=== PATIENT | male | born 1990 | race Caucasian/White ===

== ENCOUNTER 2017-08-23 10:53 | Outpatient (CLI) | payer BC ==
[~2017-08-23] VITALS: Ht 177.8 cm; Wt 70.3 kg
[~2017-08-23 10:53] MED LIST: OXYM30MI9 NS
[2017-08-24] MEDS ORDERED: AMOX-355 PO (11:22)
[2017-08-24] MEDS ORDERED: PRD20T PO (11:22)
[2017-08-24] MEDS ORDERED: HYDR-3812 PO (11:22)
== END 2017-08-23 10:59 ==
LOC: PREOP 10:53
PROVIDERS: ATTEND Otolaryngology Otolaryngology/Facial Plastic Surgery
DX: Z01.818 Encounter for other preprocedural examination (principal); J32.9 Chronic sinusitis, unspecified; J34.2 Deviated nasal septum; J34.3 Hypertrophy of nasal turbinates

== ENCOUNTER 2017-08-24 06:05 | Day surgery (SDC) | payer BC ==
[~2017-08-24] VITALS: Ht 177.8 cm; Wt 70.3 kg
--- OUTSIDE RECORDS SUMMARY | 2017-08-24 06:09 | XMS REPORT | Clinical Summary ---
Author Author Admin, [facility] Organization [employer] Address Unknown Phone Unavailable Allergies, Adverse Reactions, Alerts Allergy Name Reaction Description Start Date Severity Status Provider No Known Allergies Janina Justice A Conditions or Problems Problem Name Problem Code Onset Date Status Entry Date Provider Comment Standard Description Annotate HEALTH EXAMINATION OF DEFINED SUBPOPULATION V70.5 Active Amanda Yates Health examination of defined subpopulations HEALTH SCREENING V70.0 Active Sloan LOPEZ Routine general medical examination at a health care facility Bronchitis, acute with mild bronchospasm 466.0 Inactive Abelardo Butler DO Acute bronchitis Bronchitis-Acute Resolved Elder Dominguez MD Acute bronchitis Tinea corporis 110.5 Active Hang Farias MD Dermatophytosis of the body Chest wall pain, acute 786.52 Active Elder Dominguez MD Painful respiration Bronchitis, acute with mild bronchospasm ICD-466.0 Inactive Abelardo Butler DO Bronchitis-Acute Inactive Elder Dominguez MD 2015 Medication List Medication Instructions Start Date Stop Date Generic Name NDC Status Provider Patient Instruction METHOCARBAMOL 750 MG TABS 1 po q8hr PRN Muscle Spasm METHOCARBAMOL 19227165909 Active Elder Dominguez MD Active FLONASE 50 MCG/ACT SUSP 1 spray each nostril q hs FLUTICASONE PROPIONATE Active Elder Dominguez MD Active MELOXICAM 15 MG TABS 1 po q day for pain with food MELOXICAM 22695064529 Active Elder Dominguez MD Active ZOFRAN 4 MG TABS 1 po q6hr PRN Nausea ONDANSETRON HCL 08204401705 Active Elder Dominguez MD Active OXYCODONE HCL 5 MG ORAL TABS 1 tablet every 4-6 hours p.r.n. pain sparingly OXYCODONE HCL 48532577861 Active Elder Dominguez MD Active CHERATUSSIN AC 100-10 MG/5ML SYRP 1 tsp by mouth every 4 hours as needed for cough GUAIFENESIN-CODEINE 50847681414 No Longer Active Elder Dominguez MD Active PREDNISONE 20 MG TAB take 3 tabs daily for 3 days, 2 tabs daily for 3 days, 1 tab daily for 3 days, 1/2 tab daily for 3 days PREDNISONE 35031135870 No Longer Active Hang Farias MD Active TERBINAFINE HCL 250 MG TABS 1 qDay for rash TERBINAFINE HCL 37114017600 No Longer Active Hang Farias MD Active ALBUTEROL SULFATE 0.083 % NEBU SOLN one vial per nebulizer every 4-6 hours as needed ALBUTEROL SULFATE 22617484932 No Longer Active Hang Farias MD Active PREDNISONE 20 MG TAB 2 tabs today, then 1 tab by mouth days 2-5 PREDNISONE 50622582517 No Longer Active Hang Farias MD Active AZITHROMYCIN 250 MG TABS 2 po qd x 1 day, then 1 po qd x 4 days AZITHROMYCIN 44707104397 No Longer Active Abelardo Butler DO Active PREDNISONE 20 MG TAB 2 tabs today, then 1 tab by mouth days 2-5 PREDNISONE 20 MG TAB 274882 PREDNISONE Inactive ALBUTEROL SULFATE 0.083 % NEBU SOLN one vial per nebulizer every 4-6 hours as needed ALBUTEROL SULFATE 0.083 % NEBU SOLN 192983 ALBUTEROL SULFATE Inactive CHERATUSSIN AC 100-10 MG/5ML SYRP 1 tsp by mouth every 4 hours as needed for cough CHERATUSSIN AC 100-10 MG/5ML SYRP 838528 GUAIFENESIN-CODEINE Inactive AZITHROMYCIN 250 MG TABS 2 po qd x 1 day, then 1 po qd x 4 days AZITHROMYCIN 250 MG TABS 2511973 AZITHROMYCIN Inactive TERBINAFINE HCL 250 MG TABS 1 qDay for rash TERBINAFINE HCL 250 MG TABS 721811 TERBINAFINE HCL Inactive PREDNISONE 20 MG TAB take 3 tabs daily for 3 days, 2 tabs daily for 3 days, 1 tab daily for 3 days, 1/2 tab daily for 3 days PREDNISONE 20 MG TAB 690618 PREDNISONE Inactive Vital Signs Date Name Value Unit Range Description blood pressure, diastolic - 8462-4 76 mm[Hg] BP rivas blood pressure, systolic - 8480-6 130 mm[Hg] BP sys pulse rate E&M - 8867-4 73 /min Heart rate temperature E&M 97.8 [degF] Body temperature weight E&M - 3141-9 153.5 [lb_av] Weight Measured blood pressure, diastolic - 8462-4 79 mm[Hg] BP rivas blood pressure, systolic - 8480-6 124 mm[Hg] BP sys pulse rate E&M - 8867-4 69 /min Heart rate temperature E&M 98.7 [degF] Body temperature weight E&M - 3141-9 153 [lb_av] Weight Measured blood pressure, diastolic - 8462-4 73 mm[Hg] BP rivas blood pressure, systolic - 8480-6 145 mm[Hg] BP sys pulse rate E&M - 8867-4 75 /min Heart rate temperature E&M 97.8 [degF] Body temperature weight E&M - 3141-9 156.5 [lb_av] Weight Measured Encounters Code Encounter Date Provider Facility CPT-90464 Level 3 Est. Patient 10:29:19 CDT Elder Dominguez MD [facility] CPT-83917 Level 3 Est. 

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
--- OUTSIDE RECORDS SUMMARY | 2017-08-24 06:09 | XMS REPORT | Clinical Summary ---
Author Author Admin, [facility] Organization [facility] Address Unknown Phone Unavailable Allergies, Adverse Reactions, Alerts Allergy Name Reaction Description Start Date Severity Status Provider No Known Allergies Janina Justice RMA Conditions or Problems Problem Name Problem Code Onset Date Status Entry Date Provider Comment Standard Description Annotate HEALTH EXAMINATION OF DEFINED SUBPOPULATION V70.5 Active Amanda Yates Health examination of defined subpopulations HEALTH SCREENING V70.0 Active Sloan LOPEZ Routine general medical examination at a health care facility Bronchitis, acute with mild bronchospasm 466.0 Inactive Abelardo Btuler DO Acute bronchitis Bronchitis-Acute Resolved Elder Dominguez [...] 1 po q8hr PRN Muscle Spasm METHOCARBAMOL 25303663655 Active Elder Dominguez MD Active FLONASE 50 MCG/ACT SUSP 1 spray each nostril q hs FLUTICASONE PROPIONATE Active Elder Dominguez MD Active MELOXICAM 15 MG TABS 1 po q day for pain with food MELOXICAM 92665701090 Active Elder Dominguez MD Active ZOFRAN 4 MG TABS 1 po q6hr PRN Nausea ONDANSETRON HCL 05658612827 Active Elder Dominguez MD Active OXYCODONE HCL 5 MG ORAL TABS 1 tablet every 4-6 hours p.r.n. pain sparingly OXYCODONE HCL 95234276899 Active Elder Dominguez MD Active CHERATUSSIN AC 100-10 MG/5ML SYRP 1 tsp by mouth every 4 hours as needed for cough GUAIFENESIN-CODEINE 21366422882 No Longer Active Elder Dominguez MD Active PREDNISONE 20 MG TAB take 3 tabs daily for 3 days, 2 tabs daily for 3 days, 1 tab daily for 3 days, 1/2 tab daily for 3 days PREDNISONE 70543461221 No Longer Active Hang Farias MD Active TERBINAFINE HCL 250 MG TABS 1 qDay for rash TERBINAFINE HCL 36366615387 No Longer Active Hang Farias MD Active ALBUTEROL SULFATE 0.083 % NEBU SOLN one vial per nebulizer every 4-6 hours as needed ALBUTEROL SULFATE 52992583251 No Longer Active Hang Farias MD Active PREDNISONE 20 MG TAB 2 tabs today, then 1 tab by mouth days 2-5 PREDNISONE 97229631266 No Longer Active Hang Farias MD Active AZITHROMYCIN 250 MG TABS 2 po qd x 1 day, then 1 po qd x 4 days AZITHROMYCIN 58314520497 No Longer Active Abelardo Butler DO Active PREDNISONE 20 MG TAB 2 tabs today, then 1 tab by mouth days 2-5 PREDNISONE 20 MG TAB 581724 PREDNISONE Inactive ALBUTEROL SULFATE 0.083 % NEBU SOLN one vial per nebulizer every 4-6 hours as needed ALBUTEROL SULFATE 0.083 % NEBU SOLN 249196 ALBUTEROL SULFATE Inactive CHERATUSSIN AC 100-10 MG/5ML SYRP 1 tsp by mouth every 4 hours as needed for cough CHERATUSSIN AC 100-10 MG/5ML SYRP 652855 GUAIFENESIN-CODEINE Inactive AZITHROMYCIN 250 MG TABS 2 po qd x 1 day, then 1 po qd x 4 days AZITHROMYCIN 250 MG TABS 3913136 AZITHROMYCIN Inactive TERBINAFINE HCL 250 MG TABS 1 qDay for rash TERBINAFINE HCL 250 MG TABS 618994 TERBINAFINE HCL Inactive PREDNISONE 20 MG TAB take 3 tabs daily for 3 days, 2 tabs daily for 3 days, 1 tab daily for 3 days, 1/2 tab daily for 3 days PREDNISONE 20 MG TAB 711575 PREDNISONE Inactive Vital Signs Date Name Value [...] Measured Encounters Code Encounter Date Provider Facility CPT-33705 Level 3 Est. Patient 10:29:19 CDT Elder Dominguez MD [facility] CPT-29958 Level 3 Est. 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 Patient 17:13:20 SHIPPING LEAD PERSON Abelardo Butler DO [facility] Procedures Code Procedure Name Date Entry Date Standard Description CPT-14664 Sternum 2V - XRAY USE ONLY 10:41:33 CDT CPT-19003 [place] only w graphic rec 11:10:43 CDT CPT-99855 Audiometry - Co Only 11:10:43 CDT CPT-34643 Spec Collection and Handling Fee 11:10:43 CDT
--- OUTSIDE RECORDS SUMMARY | 2017-08-24 06:09 | XMS REPORT | Clinical Summary ---
Author Author Admin, [facility] Organization [facility] Address Unknown Phone Unavailable Allergies, Adverse Reactions, Alerts Allergy Name Reaction Description Start Date Severity Status Provider No Known Allergies Sandra Connors Conditions or Problems Problem Name Problem Code [...] MD Pain in joint involving shoulder region Bronchitis, acute with mild bronchospasm ICD-466.0 Inactive Abelardo Butler DO Bronchitis-Acute Inactive Elder Dominguez MD 2015 Medication List Medication Instructions Start Date Stop Date Generic Name NDC Status Provider Patient Instruction METHOCARBAMOL 750 MG TABS 1 po q8hr PRN Muscle Spasm METHOCARBAMOL 22225987378 No Longer Active Hang Farias MD Active ZOFRAN 4 MG TABS 1 po q6hr PRN Nausea ONDANSETRON HCL 21554865058 No Longer Active Hang Farias MD Active FLONASE 50 MCG/ACT SUSP 1 spray each nostril q hs FLUTICASONE PROPIONATE Active Elder Dominguez MD Active MELOXICAM 15 MG TABS 1 po q day for pain with food MELOXICAM 45650830628 Active Elder Dominguez MD Active OXYCODONE HCL 5 MG ORAL TABS 1 tablet every 4-6 hours p.r.n. pain sparingly OXYCODONE HCL 09059094085 Active Elder Dominguez MD Active CHERATUSSIN AC 100-10 MG/5ML SYRP 1 tsp by mouth every 4 hours as needed for cough GUAIFENESIN-CODEINE 27664694870 No Longer Active Elder Dominguez MD Active PREDNISONE 20 MG TAB take 3 tabs daily for 3 days, 2 tabs daily for 3 days, 1 tab daily for 3 days, 1/2 tab daily for 3 days PREDNISONE 47137308658 No Longer Active Hang Farias MD Active TERBINAFINE HCL 250 MG TABS 1 qDay for rash TERBINAFINE HCL 95224361409 No Longer Active Hang Farias MD Active ALBUTEROL SULFATE 0.083 % [facility] one vial per nebulizer every 4-6 hours as needed ALBUTEROL SULFATE 92243624485 No Longer Active Hang Farias MD Active PREDNISONE 20 MG TAB 2 tabs today, then 1 tab by mouth days 2-5 PREDNISONE 37155138503 No Longer Active Hang Farias MD Active AZITHROMYCIN 250 MG TABS 2 po qd x 1 day, then 1 po qd x 4 days AZITHROMYCIN 64187445942 No Longer Active Abelardo Butler DO Active PREDNISONE 20 MG TAB 2 tabs today, then 1 tab by mouth days 2-5 PREDNISONE 20 MG TAB 448324 PREDNISONE Inactive ALBUTEROL SULFATE 0.083 % NEBU SOLN one vial per nebulizer every 4-6 hours as needed ALBUTEROL SULFATE 0.083 % NEBU SOLN 163435 ALBUTEROL SULFATE Inactive CHERATUSSIN AC 100-10 MG/5ML SYRP 1 tsp by mouth every 4 hours as needed for cough CHERATUSSIN AC 100-10 MG/5ML SYRP 798502 GUAIFENESIN-CODEINE Inactive ZOFRAN 4 MG TABS 1 po q6hr PRN Nausea ZOFRAN 4 MG TABS 008624 ONDANSETRON HCL Inactive METHOCARBAMOL 750 MG TABS 1 po q8hr PRN Muscle Spasm METHOCARBAMOL 750 MG TABS 365340 METHOCARBAMOL Inactive AZITHROMYCIN 250 MG TABS 2 po qd x 1 day, then 1 po qd x 4 days AZITHROMYCIN 250 MG TABS 4375756 AZITHROMYCIN Inactive TERBINAFINE HCL 250 MG TABS 1 qDay for rash TERBINAFINE HCL 250 MG TABS 986301 TERBINAFINE HCL Inactive PREDNISONE 20 MG TAB take 3 tabs daily for 3 days, 2 tabs daily for 3 days, 1 tab daily for 3 days, 1/2 tab daily for 3 days PREDNISONE 20 MG TAB 445787 PREDNISONE Inactive Vital Signs Date Name Value Unit Range Description blood pressure, diastolic - 8462-4 77 mm[Hg] [...] Measured Encounters Code Encounter Date Provider Facility CPT-93169 Level 3 Est. Patient 12:32:48 CDT Hang Farias MD [facility] CPT-13927 Level 3 Est. Patient 10:29:19 CDT Elder Dominguez MD [facility] CPT-79600 Level 3 Est. 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 Patient 17:13:20 GLASS ENGRAVER Abelardo Butler DO [facility] Procedures Code Procedure Name Date Entry Date Standard Description CPT-48572 Sternum 2V - XRAY USE ONLY 10:41:33 CDT CPT-20527 [place] only w graphic rec 11:10:43 CDT CPT-01307 Audiometry - Co Only 11:10:43 CDT CPT-94220 Spec Collection and Handling Fee 11:10:43 CDT
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
--- OUTSIDE RECORDS SUMMARY | 2017-08-24 06:10 | XMS REPORT | Clinical Summary ---
Author Author Admin, [facility] Organization [facility] Address Unknown Phone Unavailable Allergies, Adverse Reactions, [...] q pm, if needed for cough PROMETHAZINE-CODEINE 05658204312 Active Shadyllina Mansoorl OWNER/OPERATOR Active PREDNISONE 20 MG TAB 2 tabs daily for 3 days, 1 tab daily for 3 days, 1/2 tab daily for 2 days PREDNISONE 93347441343 Active Jillina Framerlinl OWNER/OPERATOR Active AZITHROMYCIN 250 MG TABS 2 po qd x 1 day, then 1 po qd x 4 days AZITHROMYCIN 22172957321 Active Jillina Frazell OWNER/OPERATOR Active VENTOLIN HFA 108 (90 BASE) MCG/ACT AERS 1-2 puffs every 4 hours if needed for cough/congestion ALBUTEROL SULFATE 24744506959 Active Shadyllina Mansoorl OWNER/OPERATOR Active OXYCODONE HCL 5 MG ORAL TABS 1 tablet every 4-6 hours p.r.n. pain sparingly OXYCODONE HCL 92593518402 No Longer Active Shadyllina Mansoorl OWNER/OPERATOR Active MELOXICAM 15 MG TABS 1 po q day for pain with food MELOXICAM 17755034182 No Longer Active Shadyllina Mansoorl OWNER/OPERATOR Active METHOCARBAMOL 750 MG TABS 1 po q8hr PRN Muscle Spasm METHOCARBAMOL 46388064387 No Longer Active Hang Farias MD Active ZOFRAN 4 MG TABS 1 po q6hr PRN Nausea ONDANSETRON HCL 17808628653 No Longer Active Hang Farias MD Active FLONASE 50 MCG/ACT SUSP 1 spray each nostril q hs FLUTICASONE PROPIONATE Active Elder Dominguez MD Active CHERATUSSIN AC 100-10 MG/5ML SYRP 1 tsp by mouth every 4 hours as needed for cough GUAIFENESIN-CODEINE 99624867633 No Longer Active Elder Dominguez MD Active PREDNISONE 20 MG TAB take 3 tabs daily for 3 days, 2 tabs daily for 3 days, 1 tab daily for 3 days, 1/2 tab daily for 3 days PREDNISONE 44727002637 No Longer Active Hang Farias MD Active TERBINAFINE HCL 250 MG TABS 1 qDay for rash TERBINAFINE HCL 93824664552 No Longer Active Hang Farias MD Active ALBUTEROL SULFATE 0.083 % NEBU SOLN one vial per nebulizer every 4-6 hours as needed ALBUTEROL SULFATE 82672111949 No Longer Active Hang Farias MD Active PREDNISONE 20 MG TAB 2 tabs today, then 1 tab by mouth days 2-5 PREDNISONE 56418645989 No Longer Active Hang Farias MD Active AZITHROMYCIN 250 MG TABS 2 po qd x 1 day, then 1 po qd x 4 days AZITHROMYCIN 12428766195 No Longer Active Abelardo Butler DO Active PREDNISONE 20 MG TAB 2 tabs today, then 1 tab by mouth days 2-5 PREDNISONE 20 MG TAB 285513 PREDNISONE Inactive ALBUTEROL SULFATE 0.083 % NEBU SOLN one vial per nebulizer every 4-6 hours as needed ALBUTEROL SULFATE 0.083 % NEBU SOLN 123081 ALBUTEROL SULFATE Inactive CHERATUSSIN AC 100-10 MG/5ML SYRP 1 tsp by mouth every 4 hours as needed for cough CHERATUSSIN AC 100-10 MG/5ML SYRP 530121 GUAIFENESIN-CODEINE Inactive ZOFRAN 4 MG TABS 1 po q6hr PRN Nausea ZOFRAN 4 MG TABS 043136 ONDANSETRON HCL Inactive METHOCARBAMOL 750 MG TABS 1 po q8hr PRN Muscle Spasm METHOCARBAMOL 750 MG TABS 033212 METHOCARBAMOL Inactive MELOXICAM 15 MG TABS 1 po q day for pain with food MELOXICAM 15 MG TABS 695823 MELOXICAM Inactive OXYCODONE HCL 5 MG ORAL TABS 1 tablet every 4-6 hours p.r.n. pain sparingly OXYCODONE HCL 5 MG ORAL TABS 3340602 OXYCODONE HCL Inactive AZITHROMYCIN 250 MG TABS 2 po qd x 1 day, then 1 po qd x 4 days AZITHROMYCIN 250 MG TABS 4360516 AZITHROMYCIN Inactive TERBINAFINE HCL 250 MG TABS 1 qDay for rash TERBINAFINE HCL 250 MG TABS 724553 TERBINAFINE HCL Inactive PREDNISONE 20 MG TAB take 3 tabs daily for 3 days, 2 tabs daily for 3 days, 1 tab daily for 3 days, 1/2 tab daily for 3 days PREDNISONE 20 MG TAB 816319 PREDNISONE Inactive Vital Signs Date Name Value [...] Measured Encounters Code Encounter Date Provider Facility CPT-41487 Level 3 Est. [facility] 10:56:[facility] Level 3 Est. Patient 12:32:48 CDT Hang Farias MD [facility] CPT-46623 Level 3 Est. Patient 10:29:19 CDT Elder Dominguez MD [facility] CPT-37467 Level 3 Est. 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 Patient 17:13:20 PRODUCTION MECHANIC TIN C[employer] Abelardo Butler DO [facility] Procedures Code Procedure Name Date Entry Date Standard Description CPT-46915 Sternum 2V - XRAY USE ONLY 10:41:33 CDT CPT-19089 [place] only w graphic rec 11:10:43 CDT CPT-40770 Audiometry - Co Only 11:10:43 CDT CPT-93205 Spec Collection and Handling Fee 11:10:43 CDT
--- OUTSIDE RECORDS SUMMARY | 2017-08-24 06:10 | XMS REPORT | Clinical Summary ---
Author Author Admin, [facility] Organization [facility] Address Unknown Phone Unavailable Allergies, Adverse [...] 1 po q8hr PRN Muscle Spasm METHOCARBAMOL 85165673341 Active Elder Dominguez MD Active FLONASE 50 MCG/ACT SUSP 1 spray each nostril q hs FLUTICASONE PROPIONATE Active Elder Dominguez MD Active MELOXICAM 15 MG TABS 1 po q day for pain with food MELOXICAM 32541223967 Active Elder Dominguez MD Active ZOFRAN 4 MG TABS 1 po q6hr PRN Nausea ONDANSETRON HCL 99812939113 Active Elder Dominguez MD Active OXYCODONE HCL 5 MG ORAL TABS 1 tablet every 4-6 hours p.r.n. pain sparingly OXYCODONE HCL 68511075745 Active Elder Dominguez MD Active CHERATUSSIN AC 100-10 MG/5ML SYRP 1 tsp by mouth every 4 hours as needed for cough GUAIFENESIN-CODEINE 57090544464 No Longer Active Elder Dominguez MD Active PREDNISONE 20 MG TAB take 3 tabs daily for 3 days, 2 tabs daily for 3 days, 1 tab daily for 3 days, 1/2 tab daily for 3 days PREDNISONE 42642509871 No Longer Active Hang Farias MD Active TERBINAFINE HCL 250 MG TABS 1 qDay for rash TERBINAFINE HCL 92783675029 No Longer Active Hang Farias MD Active ALBUTEROL SULFATE 0.083 % NEBU SOLN one vial per nebulizer every 4-6 hours as needed ALBUTEROL SULFATE 57817411602 No Longer Active Hang Farias MD Active PREDNISONE 20 MG TAB 2 tabs today, then 1 tab by mouth days 2-5 PREDNISONE 81332590020 No Longer Active Hang Farias MD Active AZITHROMYCIN 250 MG TABS 2 po qd x 1 day, then 1 po qd x 4 days AZITHROMYCIN 40813786762 No Longer Active Abelardo Butler DO Active PREDNISONE 20 MG TAB 2 tabs today, then 1 tab by mouth days 2-5 PREDNISONE 20 MG TAB 006499 PREDNISONE Inactive ALBUTEROL SULFATE 0.083 % NEBU SOLN one vial per nebulizer every 4-6 hours as needed ALBUTEROL SULFATE 0.083 % NEBU SOLN 758961 ALBUTEROL SULFATE Inactive CHERATUSSIN AC 100-10 MG/5ML SYRP 1 tsp by mouth every 4 hours as needed for cough CHERATUSSIN AC 100-10 MG/5ML SYRP 197699 GUAIFENESIN-CODEINE Inactive AZITHROMYCIN 250 MG TABS 2 po qd x 1 day, then 1 po qd x 4 days AZITHROMYCIN 250 MG TABS 1113196 AZITHROMYCIN Inactive TERBINAFINE HCL 250 MG TABS 1 qDay for rash TERBINAFINE HCL 250 MG TABS 338081 TERBINAFINE HCL Inactive PREDNISONE 20 MG TAB take 3 tabs daily for 3 days, 2 tabs daily for 3 days, 1 tab daily for 3 days, 1/2 tab daily for 3 days PREDNISONE 20 MG TAB 895500 PREDNISONE Inactive Vital Signs Date Name Value [...] Measured Encounters Code Encounter Date Provider Facility CPT-86150 Level 3 Est. Patient 10:29:19 CDT Elder Dominguez MD [facility] CPT-12618 Level 3 Est. 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 Patient 17:13:20 TACKER ELASTIC BAND Abelardo Butler DO [facility] Procedures Code Procedure Name Date Entry Date Standard Description CPT-28922 Sternum 2V - XRAY USE ONLY 10:41:33 CDT CPT-84830 [place] only w graphic rec 11:10:43 CDT CPT-16385 Audiometry - Co Only 11:10:43 CDT CPT-77389 Spec Collection and Handling Fee 11:10:43 CDT
--- OUTSIDE RECORDS SUMMARY | 2017-08-24 06:10 | XMS REPORT | Clinical Summary ---
Author Author Admin, [facility] Organization [employer] Address Unknown Phone Unavailable Allergies, Adverse Reactions, [...] other bone Shoulder pain, left 719.41 Resolved Carter Grant MD Pain in joint involving shoulder [...] every 12 hours for 10 days AMOXICILLIN 03564011296 Active Carter Grant MD Active PREDNISONE 20 MG TABS Take 2 daily for 5 days and then 1 daily for 5 days PREDNISONE 24136629944 Active Carter Grant MD Active FLONASE 50 MCG/ACT SUSP 1 spray each nostril q hs FLUTICASONE PROPIONATE No Longer Active Carter Grant MD Active PROMETHAZINE-CODEINE 6.25-10 MG/5ML SYRP 1 tsp by mouth q pm, if needed for cough PROMETHAZINE-CODEINE 97320823058 No Longer Active Carter Grant MD Active PREDNISONE 20 MG TAB 2 tabs daily for 3 days, 1 tab daily for 3 days, 1/2 tab daily for 2 days PREDNISONE 25963201910 No Longer Active Jillina Svetlana DEJESUSN Active AZITHROMYCIN 250 MG TABS 2 po qd x 1 day, then 1 po qd x 4 days AZITHROMYCIN 84792183087 No Longer Active Jillina Frazell REFRACTORY REPAIRER Active VENTOLIN HFA 108 (90 BASE) MCG/ACT AERS 1-2 puffs every 4 hours if needed for cough/congestion ALBUTEROL SULFATE 76648803791 Active Jillina Frazell REFRACTORY REPAIRER Active OXYCODONE HCL 5 MG ORAL TABS 1 tablet every 4-6 hours p.r.n. pain sparingly OXYCODONE HCL 76423316409 No Longer Active Jillina Frazell REFRACTORY REPAIRER Active MELOXICAM 15 MG TABS 1 po q day for pain with food MELOXICAM 75306425602 No Longer Active Jillina Frazell REFRACTORY REPAIRER Active METHOCARBAMOL 750 MG TABS 1 po q8hr PRN Muscle Spasm METHOCARBAMOL 12506312758 No Longer Active Hang Farias MD Active ZOFRAN 4 MG TABS 1 po q6hr PRN Nausea ONDANSETRON HCL 63508645712 No Longer Active Hang Farias MD Active CHERATUSSIN AC 100-10 MG/5ML SYRP 1 tsp by mouth every 4 hours as needed for cough GUAIFENESIN-CODEINE 83331908500 No Longer Active Elder Dominguez MD Active PREDNISONE 20 MG TAB take 3 tabs daily for 3 days, 2 tabs daily for 3 days, 1 tab daily for 3 days, 1/2 tab daily for 3 days PREDNISONE 63402004376 No Longer Active Hang Farias MD Active TERBINAFINE HCL 250 MG TABS 1 qDay for rash TERBINAFINE HCL 84310175941 No Longer Active Hang Farias MD Active ALBUTEROL SULFATE 0.083 % NEBU SOLN one vial per nebulizer every 4-6 hours as needed ALBUTEROL SULFATE 64891475339 No Longer Active Hang Farias MD Active PREDNISONE 20 MG TAB 2 tabs today, then 1 tab by mouth days 2-5 PREDNISONE 38958650833 No Longer Active Hang Farias MD Active AZITHROMYCIN 250 MG TABS 2 po qd x 1 day, then 1 po qd x 4 days AZITHROMYCIN 52151556647 No Longer Active Abelardo Butler DO Active PREDNISONE 20 MG TAB 2 tabs today, then 1 tab by mouth days 2-5 PREDNISONE 20 MG TAB 354931 PREDNISONE Inactive ALBUTEROL SULFATE 0.083 % NEBU SOLN one vial per nebulizer every 4-6 hours as needed ALBUTEROL SULFATE 0.083 % NEBU SOLN 821770 ALBUTEROL SULFATE Inactive CHERATUSSIN AC 100-10 MG/5ML SYRP 1 tsp by mouth every 4 hours as needed for cough CHERATUSSIN AC 100-10 MG/5ML SYRP 540921 GUAIFENESIN-CODEINE Inactive ZOFRAN 4 MG TABS 1 po q6hr PRN Nausea ZOFRAN 4 MG TABS 971859 ONDANSETRON HCL Inactive METHOCARBAMOL 750 MG TABS 1 po q8hr PRN Muscle Spasm METHOCARBAMOL 750 MG TABS 671727 METHOCARBAMOL Inactive MELOXICAM 15 MG TABS 1 po q day for pain with food MELOXICAM 15 MG TABS 096583 MELOXICAM Inactive OXYCODONE HCL 5 MG ORAL TABS 1 tablet every 4-6 hours p.r.n. pain sparingly OXYCODONE HCL 5 MG ORAL TABS 0623887 OXYCODONE HCL Inactive PROMETHAZINE-CODEINE 6.25-10 MG/5ML SYRP 1 tsp by mouth q pm, if needed for cough PROMETHAZINE-CODEINE 6.25-10 MG/5ML SYRP 197298 PROMETHAZINE-CODEINE Inactive FLONASE 50 MCG/ACT SUSP 1 spray each nostril q hs FLONASE 50 MCG/ACT SUSP 1915355 FLUTICASONE PROPIONATE Inactive AZITHROMYCIN 250 MG TABS 2 po qd x 1 day, then 1 po qd x 4 days AZITHROMYCIN 250 MG TABS 3112882 AZITHROMYCIN Inactive TERBINAFINE HCL 250 MG TABS 1 qDay for rash TERBINAFINE HCL 250 MG TABS 647971 TERBINAFINE HCL Inactive PREDNISONE 20 MG TAB take 3 tabs daily for 3 days, 2 tabs daily for 3 days, 1 tab daily for 3 days, 1/2 tab daily for 3 days PREDNISONE 20 MG TAB 762462 PREDNISONE Inactive AZITHROMYCIN 250 MG TABS 2 po qd x 1 day, then 1 po qd x 4 days AZITHROMYCIN 250 MG TABS 5653854 AZITHROMYCIN Inactive PREDNISONE 20 MG TAB 2 tabs daily for 3 days, 1 tab daily for 3 days, 1/2 tab daily for 2 days PREDNISONE 20 MG TAB 657550 PREDNISONE Inactive Vital Signs Date Name Value [...] Measured Encounters Code Encounter Date Provider Facility CPT-84243 Level 3 Est. Patient 15:12:30 CDT Carter Grant MD [facility] CPT-49476 Level 3 Est. Patient 10:56:20 CDT Norman Mota APRN [facility] CPT-49081 Level 3 Est. Patient 12:32:48 CDT Hang Farias MD [facility] CPT-13119 Level 3 Est. Patient 10:29:19 CDT Elder Dominguez MD [facility] CPT-43004 Level 3 Est. 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 Patient 17:13:20 SENIOR CORPORATE ACCOUNTANT Abelardo Butler DO [facility] Procedures Code Procedure Name Date Entry Date Standard Description CPT-96891 Sternum 2V - XRAY USE ONLY 10:41:33 CDT CPT-66865 [place] only w graphic rec 11:10:43 CDT CPT-36222 Audiometry - Co Only 11:10:43 CDT CPT-14912 Spec Collection and Handling Fee 11:10:43 CDT
--- OUTSIDE RECORDS SUMMARY | 2017-08-24 06:11 | XMS REPORT | Clinical Summary ---
Author Author Admin, [facility] Organization [employer] Address Unknown Phone Unavailable Allergies, Adverse Reactions, [...] Butler DO Acute bronchitis Bronchitis-Acute Resolved Elder Domignuez MD Acute bronchitis Tinea corporis 110.5 Active [...] q pm, if needed for cough PROMETHAZINE-CODEINE 58206400825 Active Shadyllina Svetlana DEJESUSN Active PREDNISONE 20 MG TAB 2 tabs daily for 3 days, 1 tab daily for 3 days, 1/2 tab daily for 2 days PREDNISONE 03428798938 No Longer Active Jillina Mansoorl HR ANALYST Active AZITHROMYCIN 250 MG TABS 2 po qd x 1 day, then 1 po qd x 4 days AZITHROMYCIN 22761189959 No Longer Active Jillina Framerlinl HR ANALYST Active VENTOLIN HFA 108 (90 BASE) MCG/ACT AERS 1-2 puffs every 4 hours if needed for cough/congestion ALBUTEROL SULFATE 95653404055 Active Shadyllina Mansoorl HR ANALYST Active OXYCODONE HCL 5 MG ORAL TABS 1 tablet every 4-6 hours p.r.n. pain sparingly OXYCODONE HCL 84775776370 No Longer Active Shadyllina Mansoorl HR ANALYST Active MELOXICAM 15 MG TABS 1 po q day for pain with food MELOXICAM 17965698706 No Longer Active Shadyllina Svetlana DEJESUSN Active METHOCARBAMOL 750 MG TABS 1 po q8hr PRN Muscle Spasm METHOCARBAMOL 10703216183 No Longer Active Hang Farias MD Active ZOFRAN 4 MG TABS 1 po q6hr PRN Nausea ONDANSETRON HCL 03613778673 No Longer Active Hang Farias MD Active FLONASE 50 MCG/ACT SUSP 1 spray each nostril q hs FLUTICASONE PROPIONATE Active Elder Dominguez MD Active CHERATUSSIN AC 100-10 MG/5ML SYRP 1 tsp by mouth every 4 hours as needed for cough GUAIFENESIN-CODEINE 98379779198 No Longer Active Elder Dominguez MD Active PREDNISONE 20 MG TAB take 3 tabs daily for 3 days, 2 tabs daily for 3 days, 1 tab daily for 3 days, 1/2 tab daily for 3 days PREDNISONE 02120276600 No Longer Active Hang Farias MD Active TERBINAFINE HCL 250 MG TABS 1 qDay for rash TERBINAFINE HCL 15143769024 No Longer Active Hang Farias MD Active ALBUTEROL SULFATE 0.083 % [facility] one vial per nebulizer every 4-6 hours as needed ALBUTEROL SULFATE 70621164717 No Longer Active Hang Farias MD Active PREDNISONE 20 MG TAB 2 tabs today, then 1 tab by mouth days 2-5 PREDNISONE 40708228817 No Longer Active Hang Farias MD Active AZITHROMYCIN 250 MG TABS 2 po qd x 1 day, then 1 po qd x 4 days AZITHROMYCIN 77858759841 No Longer Active Abelardo Butler DO Active PREDNISONE 20 MG TAB 2 tabs today, then 1 tab by mouth days 2-5 PREDNISONE 20 MG TAB 859790 PREDNISONE Inactive ALBUTEROL SULFATE 0.083 % [facility] one vial per nebulizer every 4-6 hours as needed ALBUTEROL SULFATE 0.083 % [facility] 744440 ALBUTEROL SULFATE Inactive CHERATUSSIN AC 100-10 MG/5ML SYRP 1 tsp by mouth every 4 hours as needed for cough CHERATUSSIN AC 100-10 MG/5ML SYRP 652234 GUAIFENESIN-CODEINE Inactive ZOFRAN 4 MG TABS 1 po q6hr PRN Nausea ZOFRAN 4 MG TABS 120984 ONDANSETRON HCL Inactive METHOCARBAMOL 750 MG TABS 1 po q8hr PRN Muscle Spasm METHOCARBAMOL 750 MG TABS 881848 METHOCARBAMOL Inactive MELOXICAM 15 MG TABS 1 po q day for pain with food MELOXICAM 15 MG TABS 806554 MELOXICAM Inactive OXYCODONE HCL 5 MG ORAL TABS 1 tablet every 4-6 hours p.r.n. pain sparingly OXYCODONE HCL 5 MG ORAL TABS 0869411 OXYCODONE HCL Inactive AZITHROMYCIN 250 MG TABS 2 po qd x 1 day, then 1 po qd x 4 days AZITHROMYCIN 250 MG TABS 0996611 AZITHROMYCIN Inactive TERBINAFINE HCL 250 MG TABS 1 qDay for rash TERBINAFINE HCL 250 MG TABS 137621 TERBINAFINE HCL Inactive PREDNISONE 20 MG TAB take 3 tabs daily for 3 days, 2 tabs daily for 3 days, 1 tab daily for 3 days, 1/2 tab daily for 3 days PREDNISONE 20 MG TAB 994347 PREDNISONE Inactive AZITHROMYCIN 250 MG TABS 2 po qd x 1 day, then 1 po qd x 4 days AZITHROMYCIN 250 MG TABS 3978376 AZITHROMYCIN Inactive PREDNISONE 20 MG TAB 2 tabs daily for 3 days, 1 tab daily for 3 days, 1/2 tab daily for 2 days PREDNISONE 20 MG TAB 207303 PREDNISONE Inactive Vital Signs Date Name Value [...] Measured Encounters Code Encounter Date Provider Facility CPT-89852 Level 3 Est. Patient 10:56:20 CDT Norman Mota APRN [facility] CPT-56407 Level 3 Est. Patient 12:32:48 CDT Hang Farias MD [facility] CPT-30244 Level 3 Est. Patient 10:29:19 CDT Elder Dominguez MD [facility] CPT-42574 Level 3 Est. 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
--- OUTSIDE RECORDS SUMMARY | 2017-08-24 06:11 | XMS REPORT | Clinical Summary ---
Author Author Admin, [facility] Organization [employer] [facility] Address Unknown Phone Unavailable Allergies, Adverse Reactions, Alerts Allergy Name Reaction Description Start Date Severity Status Provider No Known Allergies Ofelia Martinze RMA Conditions or Problems Problem Name Problem [...] every 12 hours for 10 days AMOXICILLIN 43201628884 Active Carter Grant MD Active PREDNISONE 20 MG TABS Take 2 daily for 5 days and then 1 daily for 5 days PREDNISONE 19770394583 No Longer Active Carter Grant MD Active FLONASE 50 MCG/ACT SUSP 1 spray each nostril q hs FLUTICASONE PROPIONATE No Longer Active Carter Grant MD Active PROMETHAZINE-CODEINE 6.25-10 MG/5ML SYRP 1 tsp by mouth q pm, if needed for cough PROMETHAZINE-CODEINE 73389647624 No Longer Active Carter Grant MD Active PREDNISONE 20 MG TAB 2 tabs daily for 3 days, 1 tab daily for 3 days, 1/2 tab daily for 2 days PREDNISONE 57591103893 No Longer Active Jillina Framerlinl SLOT MACHINE FLOOR PERSON Active AZITHROMYCIN 250 MG TABS 2 po qd x 1 day, then 1 po qd x 4 days AZITHROMYCIN 08251482765 No Longer Active Jillina Frazell SLOT MACHINE FLOOR PERSON Active VENTOLIN HFA 108 (90 BASE) MCG/ACT AERS 1-2 puffs every 4 hours if needed for cough/congestion ALBUTEROL SULFATE 94991667380 Active Jillina Frazell SLOT MACHINE FLOOR PERSON Active OXYCODONE HCL 5 MG ORAL TABS 1 tablet every 4-6 hours p.r.n. pain sparingly OXYCODONE HCL 20284430602 No Longer Active Jillina Frazell SLOT MACHINE FLOOR PERSON Active MELOXICAM 15 MG TABS 1 po q day for pain with food MELOXICAM 91566481905 No Longer Active Jillina Frazell SLOT MACHINE FLOOR PERSON Active METHOCARBAMOL 750 MG TABS 1 po q8hr PRN Muscle Spasm METHOCARBAMOL 84937012543 No Longer Active Hang Farias MD Active ZOFRAN 4 MG TABS 1 po q6hr PRN Nausea ONDANSETRON HCL 18612482052 No Longer Active Hang Farias MD Active CHERATUSSIN AC 100-10 MG/5ML SYRP 1 tsp by mouth every 4 hours as needed for cough GUAIFENESIN-CODEINE 35629635324 No Longer Active Elder Dominguez MD Active PREDNISONE 20 MG TAB take 3 tabs daily for 3 days, 2 tabs daily for 3 days, 1 tab daily for 3 days, 1/2 tab daily for 3 days PREDNISONE 95010820763 No Longer Active Hang Farias MD Active TERBINAFINE HCL 250 MG TABS 1 qDay for rash TERBINAFINE HCL 46173692202 No Longer Active Hang Farias MD Active ALBUTEROL SULFATE 0.083 % [facility] one vial per nebulizer every 4-6 hours as needed ALBUTEROL SULFATE 30602200257 No Longer Active Hang Farias MD Active PREDNISONE 20 MG TAB 2 tabs today, then 1 tab by mouth days 2-5 PREDNISONE 44533074904 No Longer Active Hang Farias MD Active AZITHROMYCIN 250 MG TABS 2 po qd x 1 day, then 1 po qd x 4 days AZITHROMYCIN 42693921019 No Longer Active Abelardo Butler DO Active PREDNISONE 20 MG TAB 2 tabs today, then 1 tab by mouth days 2-5 PREDNISONE 20 MG TAB 085961 PREDNISONE Inactive ALBUTEROL SULFATE 0.083 % [facility] one vial per nebulizer every 4-6 hours as needed ALBUTEROL SULFATE 0.083 % [facility] 496452 ALBUTEROL SULFATE Inactive CHERATUSSIN AC 100-10 MG/5ML SYRP 1 tsp by mouth every 4 hours as needed for cough CHERATUSSIN AC 100-10 MG/5ML SYRP 374228 GUAIFENESIN-CODEINE Inactive ZOFRAN 4 MG TABS 1 po q6hr PRN Nausea ZOFRAN 4 MG TABS 023859 ONDANSETRON HCL Inactive METHOCARBAMOL 750 MG TABS 1 po q8hr PRN Muscle Spasm METHOCARBAMOL 750 MG TABS 614520 METHOCARBAMOL Inactive MELOXICAM 15 MG TABS 1 po q day for pain with food MELOXICAM 15 MG TABS 432293 MELOXICAM Inactive OXYCODONE HCL 5 MG ORAL TABS 1 tablet every 4-6 hours p.r.n. pain sparingly OXYCODONE HCL 5 MG ORAL TABS 6552962 OXYCODONE HCL Inactive PROMETHAZINE-CODEINE 6.25-10 MG/5ML SYRP 1 tsp by mouth q pm, if needed for cough PROMETHAZINE-CODEINE 6.25-10 MG/5ML SYRP 481168 PROMETHAZINE-CODEINE Inactive FLONASE 50 MCG/ACT SUSP 1 spray each nostril q hs FLONASE 50 MCG/ACT SUSP 7909590 FLUTICASONE PROPIONATE Inactive AZITHROMYCIN 250 MG TABS 2 po qd x 1 day, then 1 po qd x 4 days AZITHROMYCIN 250 MG TABS 0010568 AZITHROMYCIN Inactive TERBINAFINE HCL 250 MG TABS 1 qDay for rash TERBINAFINE HCL 250 MG TABS 749948 TERBINAFINE HCL Inactive PREDNISONE 20 MG TAB take 3 tabs daily for 3 days, 2 tabs daily for 3 days, 1 tab daily for 3 days, 1/2 tab daily for 3 days PREDNISONE 20 MG TAB 404939 PREDNISONE Inactive AZITHROMYCIN 250 MG TABS 2 po qd x 1 day, then 1 po qd x 4 days AZITHROMYCIN 250 MG TABS 4309886 AZITHROMYCIN Inactive PREDNISONE 20 MG TAB 2 tabs daily for 3 days, 1 tab daily for 3 days, 1/2 tab daily for 2 days PREDNISONE 20 MG TAB 303017 PREDNISONE Inactive PREDNISONE 20 MG TABS Take 2 daily for 5 days and then 1 daily for 5 days PREDNISONE 20 MG TABS 393439 PREDNISONE Inactive Vital Signs Date Name Value Unit Range Description blood pressure, diastolic 81 mm[Hg] BP rivas blood pressure, systolic 142 mm[Hg] BP sys height E&M 69 [in_us] Bdy height pulse rate E&M 84 /min Heart rate temperature E&M 98.2 [degF] Body temperature weight E&M 155 [lb_av] Weight Measured blood pressure, diastolic 82 mm[Hg] BP rivas blood pressure, systolic 139 mm[Hg] BP sys pulse rate E&M 76 /min Heart rate temperature E&M 98.2 [degF] Body temperature weight E&M 151 [lb_av] Weight Measured blood pressure, diastolic 77 mm[Hg] BP rivas blood pressure, systolic 122 mm[Hg] BP sys pulse rate E&M 73 /min Heart rate temperature E&M 99.0 [degF] Body temperature weight E&M 148 [lb_av] Weight Measured blood pressure, diastolic 76 mm[Hg] BP rivas blood pressure, systolic 130 mm[Hg] BP sys pulse rate E&M 73 /min Heart rate temperature E&M 97.8 [degF] Body temperature weight E&M 153.5 [lb_av] Weight Measured Encounters Code Encounter Date Provider Facility CPT-11561 Level 3 Est. Patient 15:12:30 CDT Carter Grant MD [facility] CPT-06054 Level 3 Est. Patient 10:56:20 CDT Norman Mota APRN [facility] CPT-79409 Level 3 Est. Patient 12:32:48 CDT Hang Farias MD [facility] CPT-51115 Level 3 Est. Patient 10:29:19 CDT Elder Dominguez MD [facility] CPT-17235 Level 3 Est. 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
--- OUTSIDE RECORDS SUMMARY | 2017-08-24 06:11 | XMS REPORT | Clinical Summary ---
Author Author Admin, [facility] Organization [facility] Address Unknown Phone Unavailable Allergies, Adverse Reactions, [...] 1 po q8hr PRN Muscle Spasm METHOCARBAMOL 53642066062 No Longer Active Hang Farias MD Active ZOFRAN 4 MG TABS 1 po q6hr PRN Nausea ONDANSETRON HCL 19042912187 No Longer Active Hang Farias MD Active FLONASE 50 MCG/ACT SUSP 1 spray each nostril q hs FLUTICASONE PROPIONATE Active Elder Dominguez MD Active MELOXICAM 15 MG TABS 1 po q day for pain with food MELOXICAM 37808424783 Active Elder Dominguez MD Active OXYCODONE HCL 5 MG ORAL TABS 1 tablet every 4-6 hours p.r.n. pain sparingly OXYCODONE HCL 97074023387 Active Elder Dominguez MD Active CHERATUSSIN AC 100-10 MG/5ML SYRP 1 tsp by mouth every 4 hours as needed for cough GUAIFENESIN-CODEINE 96657471741 No Longer Active Elder Dominguez MD Active PREDNISONE 20 MG TAB take 3 tabs daily for 3 days, 2 tabs daily for 3 days, 1 tab daily for 3 days, 1/2 tab daily for 3 days PREDNISONE 27821520871 No Longer Active Hang Farias MD Active TERBINAFINE HCL 250 MG TABS 1 qDay for rash TERBINAFINE HCL 23818333898 No Longer Active Hang Farias MD Active ALBUTEROL SULFATE 0.083 % [facility] one vial per nebulizer every 4-6 hours as needed ALBUTEROL SULFATE 92556749757 No Longer Active Hang Farias MD Active PREDNISONE 20 MG TAB 2 tabs today, then 1 tab by mouth days 2-5 PREDNISONE 82012923561 No Longer Active Hang Farias MD Active AZITHROMYCIN 250 MG TABS 2 po qd x 1 day, then 1 po qd x 4 days AZITHROMYCIN 65045041301 No Longer Active Abelardo Butler DO Active PREDNISONE 20 MG TAB 2 tabs today, then 1 tab by mouth days 2-5 PREDNISONE 20 MG TAB 955521 PREDNISONE Inactive ALBUTEROL SULFATE 0.083 % NEBU SOLN one vial per nebulizer every 4-6 hours as needed ALBUTEROL SULFATE 0.083 % NEBU [facility]N 433124 ALBUTEROL SULFATE Inactive CHERATUSSIN AC 100-10 MG/5ML SYRP 1 tsp by mouth every 4 hours as needed for cough CHERATUSSIN AC 100-10 MG/5ML SYRP 781982 GUAIFENESIN-CODEINE Inactive ZOFRAN 4 MG TABS 1 po q6hr PRN Nausea ZOFRAN 4 MG TABS 248304 ONDANSETRON HCL Inactive METHOCARBAMOL 750 MG TABS 1 po q8hr PRN Muscle Spasm METHOCARBAMOL 750 MG TABS 002315 METHOCARBAMOL Inactive AZITHROMYCIN 250 MG TABS 2 po qd x 1 day, then 1 po qd x 4 days AZITHROMYCIN 250 MG TABS 6821850 AZITHROMYCIN Inactive TERBINAFINE HCL 250 MG TABS 1 qDay for rash TERBINAFINE HCL 250 MG TABS 634512 TERBINAFINE HCL Inactive PREDNISONE 20 MG TAB take 3 tabs daily for 3 days, 2 tabs daily for 3 days, 1 tab daily for 3 days, 1/2 tab daily for 3 days PREDNISONE 20 MG TAB 311569 PREDNISONE Inactive Vital Signs Date Name Value [...] Measured Encounters Code Encounter Date Provider Facility CPT-74711 Level 3 Est. Patient 12:32:48 CDT Hang Farias MD [facility] CPT-47404 Level 3 Est. Patient 10:29:19 CDT Elder Dominguez MD [facility] CPT-28834 Level 3 Est. 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 Patient 17:13:20 DEV MANAGER Abelardo Butler DO [facility] Procedures Code Procedure Name Date Entry Date Standard Description CPT-55174 Sternum 2V - XRAY USE ONLY 10:41:33 CDT CPT-66000 Geraldo only w graphic rec 11:10:43 CDT CPT-36750 Audiometry - Co Only 11:10:43 CDT CPT-20730 Spec Collection and Handling Fee 11:10:43 CDT
--- OUTSIDE RECORDS SUMMARY | 2017-08-24 06:11 | XMS REPORT | Clinical Summary ---
Author Author Admin, [facility] Organization [facility] Address Unknown Phone Unavailable Allergies, Adverse [...] 1 po q8hr PRN Muscle Spasm METHOCARBAMOL 07078351022 No Longer Active Hang Farias MD Active ZOFRAN 4 MG TABS 1 po q6hr PRN Nausea ONDANSETRON HCL 77125859191 No Longer Active Hang Farias MD Active FLONASE 50 MCG/ACT SUSP 1 spray each nostril q hs FLUTICASONE PROPIONATE Active Elder Dominguez MD Active MELOXICAM 15 MG TABS 1 po q day for pain with food MELOXICAM 72448149976 Active Elder Dominguez MD Active OXYCODONE HCL 5 MG ORAL TABS 1 tablet every 4-6 hours p.r.n. pain sparingly OXYCODONE HCL 62600146837 Active Elder Dominguez MD Active CHERATUSSIN AC 100-10 MG/5ML SYRP 1 tsp by mouth every 4 hours as needed for cough GUAIFENESIN-CODEINE 08681045821 No Longer Active Elder Dominguez MD Active PREDNISONE 20 MG TAB take 3 tabs daily for 3 days, 2 tabs daily for 3 days, 1 tab daily for 3 days, 1/2 tab daily for 3 days PREDNISONE 54021439969 No Longer Active Hang Farias MD Active TERBINAFINE HCL 250 MG TABS 1 qDay for rash TERBINAFINE HCL 70426283796 No Longer Active Hang Farias MD Active ALBUTEROL SULFATE 0.083 % [facility] one vial per nebulizer every 4-6 hours as needed ALBUTEROL SULFATE 92552155529 No Longer Active Hang Farias MD Active PREDNISONE 20 MG TAB 2 tabs today, then 1 tab by mouth days 2-5 PREDNISONE 90219720353 No Longer Active Hang Farias MD Active AZITHROMYCIN 250 MG TABS 2 po qd x 1 day, then 1 po qd x 4 days AZITHROMYCIN 29114521521 No Longer Active Abelardo Butler DO Active PREDNISONE 20 MG TAB 2 tabs today, then 1 tab by mouth days 2-5 PREDNISONE 20 MG TAB 125889 PREDNISONE Inactive ALBUTEROL SULFATE 0.083 % [facility] one vial per nebulizer every 4-6 hours as needed ALBUTEROL SULFATE 0.083 % NEBU SOLN 570158 ALBUTEROL SULFATE Inactive CHERATUSSIN AC 100-10 MG/5ML SYRP 1 tsp by mouth every 4 hours as needed for cough CHERATUSSIN AC 100-10 MG/5ML SYRP 970987 GUAIFENESIN-CODEINE Inactive ZOFRAN 4 MG TABS 1 po q6hr PRN Nausea ZOFRAN 4 MG TABS 175061 ONDANSETRON HCL Inactive METHOCARBAMOL 750 MG TABS 1 po q8hr PRN Muscle Spasm METHOCARBAMOL 750 MG TABS 998020 METHOCARBAMOL Inactive AZITHROMYCIN 250 MG TABS 2 po qd x 1 day, then 1 po qd x 4 days AZITHROMYCIN 250 MG TABS 3366794 AZITHROMYCIN Inactive TERBINAFINE HCL 250 MG TABS 1 qDay for rash TERBINAFINE HCL 250 MG TABS 011541 TERBINAFINE HCL Inactive PREDNISONE 20 MG TAB take 3 tabs daily for 3 days, 2 tabs daily for 3 days, 1 tab daily for 3 days, 1/2 tab daily for 3 days PREDNISONE 20 MG TAB 575064 PREDNISONE Inactive Vital Signs Date Name Value [...] Measured Encounters Code Encounter Date Provider Facility CPT-66571 Level 3 Est. Patient 12:32:48 CDT Hang Farias MD [facility] CPT-48498 Level 3 Est. Patient 10:29:19 CDT Elder Dominguez MD [facility] CPT-23992 Level 3 Est. 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
--- OUTSIDE RECORDS SUMMARY | 2017-08-24 06:12 | XMS REPORT | Clinical Summary ---
Author Author Admin, [facility] Organization [employer] Address Unknown Phone Unavailable Allergies, Adverse Reactions, [...] 1 po q8hr PRN Muscle Spasm METHOCARBAMOL 35229165556 No Longer Active Hang Farias MD Active ZOFRAN 4 MG TABS 1 po q6hr PRN Nausea ONDANSETRON HCL 49744565818 No Longer Active Hang Farias MD Active FLONASE 50 MCG/ACT SUSP 1 spray each nostril q hs FLUTICASONE PROPIONATE Active Elder Dominguez MD Active MELOXICAM 15 MG TABS 1 po q day for pain with food MELOXICAM 36955268744 Active Elder Dominguez MD Active OXYCODONE HCL 5 MG ORAL TABS 1 tablet every 4-6 hours p.r.n. pain sparingly OXYCODONE HCL 58256413761 Active Elder Dominguez MD Active CHERATUSSIN AC 100-10 MG/5ML SYRP 1 tsp by mouth every 4 hours as needed for cough GUAIFENESIN-CODEINE 79947111400 No Longer Active Elder Dominguez MD Active PREDNISONE 20 MG TAB take 3 tabs daily for 3 days, 2 tabs daily for 3 days, 1 tab daily for 3 days, 1/2 tab daily for 3 days PREDNISONE 99365938803 No Longer Active Hang Farias MD Active TERBINAFINE HCL 250 MG TABS 1 qDay for rash TERBINAFINE HCL 10583958800 No Longer Active Hang Farias MD Active ALBUTEROL SULFATE 0.083 % [facility] one vial per nebulizer every 4-6 hours as needed ALBUTEROL SULFATE 18378423841 No Longer Active Hang Farias MD Active PREDNISONE 20 MG TAB 2 tabs today, then 1 tab by mouth days 2-5 PREDNISONE 79579112882 No Longer Active Hang Farias MD Active AZITHROMYCIN 250 MG TABS 2 po qd x 1 day, then 1 po qd x 4 days AZITHROMYCIN 83972082110 No Longer Active Abelardo Butler DO Active PREDNISONE 20 MG TAB 2 tabs today, then 1 tab by mouth days 2-5 PREDNISONE 20 MG TAB 021667 PREDNISONE Inactive ALBUTEROL SULFATE 0.083 % [facility] one vial per nebulizer every 4-6 hours as needed ALBUTEROL SULFATE 0.083 % [facility] 354705 ALBUTEROL SULFATE Inactive CHERATUSSIN AC 100-10 MG/5ML SYRP 1 tsp by mouth every 4 hours as needed for cough CHERATUSSIN AC 100-10 MG/5ML SYRP 473698 GUAIFENESIN-CODEINE Inactive ZOFRAN 4 MG TABS 1 po q6hr PRN Nausea ZOFRAN 4 MG TABS 736202 ONDANSETRON HCL Inactive METHOCARBAMOL 750 MG TABS 1 po q8hr PRN Muscle Spasm METHOCARBAMOL 750 MG TABS 110457 METHOCARBAMOL Inactive AZITHROMYCIN 250 MG TABS 2 po qd x 1 day, then 1 po qd x 4 days AZITHROMYCIN 250 MG TABS 5328394 AZITHROMYCIN Inactive TERBINAFINE HCL 250 MG TABS 1 qDay for rash TERBINAFINE HCL 250 MG TABS 027117 TERBINAFINE HCL Inactive PREDNISONE 20 MG TAB take 3 tabs daily for 3 days, 2 tabs daily for 3 days, 1 tab daily for 3 days, 1/2 tab daily for 3 days PREDNISONE 20 MG TAB 801520 PREDNISONE Inactive Vital Signs Date Name Value [...] Measured Encounters Code Encounter Date Provider Facility CPT-82685 Level 3 Est. Patient 12:32:48 CDT Hang Farias MD [facility] CPT-63724 Level 3 Est. Patient 10:29:19 CDT Elder Dominguez MD [facility] CPT-98482 Level 3 Est. 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
--- OUTSIDE RECORDS SUMMARY | 2017-08-24 06:12 | XMS REPORT | Clinical Summary ---
Author Author Admin, [facility] Organization [employer] [facility] Address Unknown Phone Unavailable Allergies, Adverse Reactions, [...] acute with mild bronchospasm ICD-466.0 Inactive Abelardo Kumar Luke DEWEY Tinea corporis ICD-110.5 Inactive Carter Grant MD Chest wall pain, acute ICD-786.52 Inactive Carter Grant MD Multiple fractures of ribs, left side, subsequent encounter for fracture with routine healing ICD-V54.19 Inactive Carter Grant MD Shoulder pain, left ICD-719.41 Inactive Carter Grant MD Bronchitis ICD-490 Inactive Carter Grant MD 2016 Bronchitis-Acute Inactive Elder Dominguez MD 2015 Medication List Medication Instructions Start Date Stop Date Generic Name NDC Status Provider Patient Instruction AMOXICILLIN 500 MG TABS Take two tablets by mouth every 12 hours for 10 days AMOXICILLIN 93715071354 Active Carter Grant MD Active PREDNISONE 20 MG TABS Take 2 daily for 5 days and then 1 daily for 5 days PREDNISONE 31790258726 No Longer Active Carter Grant MD Active FLONASE 50 MCG/ACT SUSP 1 spray each nostril q hs FLUTICASONE PROPIONATE No Longer Active Carter Grant MD Active PROMETHAZINE-CODEINE 6.25-10 MG/5ML SYRP 1 tsp by mouth q pm, if needed for cough PROMETHAZINE-CODEINE 44033163581 No Longer Active Carter Grant MD Active PREDNISONE 20 MG TAB 2 tabs daily for 3 days, 1 tab daily for 3 days, 1/2 tab daily for 2 days PREDNISONE 23661740964 No Longer Active Jillina Frazell SILK SCREEN PROCESSOR Active AZITHROMYCIN 250 MG TABS 2 po qd x 1 day, then 1 po qd x 4 days AZITHROMYCIN 38257602054 No Longer Active Jillina Frazell SILK SCREEN PROCESSOR Active VENTOLIN HFA 108 (90 BASE) MCG/ACT AERS 1-2 puffs every 4 hours if needed for cough/congestion ALBUTEROL SULFATE 13571415982 Active Jillina Frazell SILK SCREEN PROCESSOR Active OXYCODONE HCL 5 MG ORAL TABS 1 tablet every 4-6 hours p.r.n. pain sparingly OXYCODONE HCL 17658287535 No Longer Active Jillina Frazell SILK SCREEN PROCESSOR Active MELOXICAM 15 MG TABS 1 po q day for pain with food MELOXICAM 42326532442 No Longer Active Jillina Frazell SILK SCREEN PROCESSOR Active METHOCARBAMOL 750 MG TABS 1 po q8hr PRN Muscle Spasm METHOCARBAMOL 29751516464 No Longer Active Hang Farias MD Active ZOFRAN 4 MG TABS 1 po q6hr PRN Nausea ONDANSETRON HCL 73394863089 No Longer Active Hang Farias MD Active CHERATUSSIN AC 100-10 MG/5ML SYRP 1 tsp by mouth every 4 hours as needed for cough GUAIFENESIN-CODEINE 76067222264 No Longer Active Elder Dominguez MD Active PREDNISONE 20 MG TAB take 3 tabs daily for 3 days, 2 tabs daily for 3 days, 1 tab daily for 3 days, 1/2 tab daily for 3 days PREDNISONE 75969647106 No Longer Active Hang Farias MD Active TERBINAFINE HCL 250 MG TABS 1 qDay for rash TERBINAFINE HCL 51329138487 No Longer Active Hang Farias MD Active ALBUTEROL SULFATE 0.083 % NEBU SOLN one vial per nebulizer every 4-6 hours as needed ALBUTEROL SULFATE 27711019445 No Longer Active Hang Farias MD Active PREDNISONE 20 MG TAB 2 tabs today, then 1 tab by mouth days 2-5 PREDNISONE 74598151760 No Longer Active Hang Farias MD Active AZITHROMYCIN 250 MG TABS 2 po qd x 1 day, then 1 po qd x 4 days AZITHROMYCIN 59286087741 No Longer Active Abelardo Butler DO Active PREDNISONE 20 MG TAB 2 tabs today, then 1 tab by mouth days 2-5 PREDNISONE 20 MG TAB 467268 PREDNISONE Inactive ALBUTEROL SULFATE 0.083 % NEBU SOLN one vial per nebulizer every 4-6 hours as needed ALBUTEROL SULFATE 0.083 % NEBU SOLN 202473 ALBUTEROL SULFATE Inactive CHERATUSSIN AC 100-10 MG/5ML SYRP 1 tsp by mouth every 4 hours as needed for cough CHERATUSSIN AC 100-10 MG/5ML SYRP 840198 GUAIFENESIN-CODEINE Inactive ZOFRAN 4 MG TABS 1 po q6hr PRN Nausea ZOFRAN 4 MG TABS 978471 ONDANSETRON HCL Inactive METHOCARBAMOL 750 MG TABS 1 po q8hr PRN Muscle Spasm METHOCARBAMOL 750 MG TABS 216550 METHOCARBAMOL Inactive MELOXICAM 15 MG TABS 1 po q day for pain with food MELOXICAM 15 MG TABS 341102 MELOXICAM Inactive OXYCODONE HCL 5 MG ORAL TABS 1 tablet every 4-6 hours p.r.n. pain sparingly OXYCODONE HCL 5 MG ORAL TABS 6674463 OXYCODONE HCL Inactive PROMETHAZINE-CODEINE 6.25-10 MG/5ML SYRP 1 tsp by mouth q pm, if needed for cough PROMETHAZINE-CODEINE 6.25-10 MG/5ML SYRP 551842 PROMETHAZINE-CODEINE Inactive FLONASE 50 MCG/ACT SUSP 1 spray each nostril q hs FLONASE 50 MCG/ACT SUSP 3185115 FLUTICASONE PROPIONATE Inactive AZITHROMYCIN 250 MG TABS 2 po qd x 1 day, then 1 po qd x 4 days AZITHROMYCIN 250 MG TABS 4610437 AZITHROMYCIN Inactive TERBINAFINE HCL 250 MG TABS 1 qDay for rash TERBINAFINE HCL 250 MG TABS 854044 TERBINAFINE HCL Inactive PREDNISONE 20 MG TAB take 3 tabs daily for 3 days, 2 tabs daily for 3 days, 1 tab daily for 3 days, 1/2 tab daily for 3 days PREDNISONE 20 MG TAB 937182 PREDNISONE Inactive AZITHROMYCIN 250 MG TABS 2 po qd x 1 day, then 1 po qd x 4 days AZITHROMYCIN 250 MG TABS 7242773 AZITHROMYCIN Inactive PREDNISONE 20 MG TAB 2 tabs daily for 3 days, 1 tab daily for 3 days, 1/2 tab daily for 2 days PREDNISONE 20 MG TAB 547045 PREDNISONE Inactive PREDNISONE 20 MG TABS Take 2 daily for 5 days and then 1 daily for 5 days PREDNISONE 20 MG TABS 516793 PREDNISONE Inactive Vital Signs Date Name Value [...] Measured Encounters Code Encounter Date Provider Facility CPT-36873 Level 3 Est. Patient 15:12:30 CDT Carter Grant MD [facility] CPT-39443 Level 3 Est. Patient 10:56:20 CDT Norman Mota APRN [facility] CPT-91287 Level 3 Est. Patient 12:32:48 CDT Hang Farias MD [facility] CPT-75433 Level 3 Est. Patient 10:29:19 CDT Elder Dominguez MD [facility] CPT-92127 Level 3 Est. 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 Patient 17:13:20 HAND BRIM IRONER Abelardo Butler DO [facility] Procedures Code Procedure Name Date Entry Date Standard Description CPT-09070 Sternum 2V - XRAY USE ONLY 10:41:33 CDT CPT-70906 [place] only w graphic rec 11:10:43 CDT CPT-10389 Audiometry - Co Only 11:10:43 CDT CPT-79220 Spec Collection and Handling Fee 11:10:43 CDT
--- OUTSIDE RECORDS SUMMARY | 2017-08-24 06:12 | XMS REPORT | Clinical Summary ---
Author Author Admin, [facility] Organization [employer] Address Unknown Phone Unavailable Allergies, Adverse Reactions, Alerts Allergy Name Reaction Description Start Date Severity Status Provider No Known Allergies Jada Kwon Conditions or Problems Problem Name Problem Code Onset Date Status Entry Date Provider Comment Standard Description Annotate HEALTH EXAMINATION OF DEFINED SUBPOPULATION V70.5 Active Amanda Yates Health examination of defined subpopulations HEALTH SCREENING V70.0 Active Sloan LOPEZ Routine general medical examination at a health care facility Bronchitis, acute with mild bronchospasm 466.0 Inactive Abelardo Butler DO Acute bronchitis Bronchitis-Acute Active Hang Farias MD Acute bronchitis Tinea corporis 110.5 Active Hang Farias MD Dermatophytosis of the body Bronchitis, acute with mild bronchospasm ICD-466.0 Inactive Abelardo Butler DO Medication List Medication Instructions Start Date Stop Date Generic Name NDC Status Provider Patient Instruction PREDNISONE 20 MG TAB take 3 tabs daily for 3 days, 2 tabs daily for 3 days, 1 tab daily for 3 days, 1/2 tab daily for 3 days PREDNISONE 53450796092 No Longer Active Hang Farias MD Active CHERATUSSIN AC 100-10 MG/5ML SYRP 1 tsp by mouth every 4 hours as needed for cough GUAIFENESIN-CODEINE 28304894169 Active Hang Farias MD Active TERBINAFINE HCL 250 MG TABS 1 qDay for rash TERBINAFINE HCL 31021693318 No Longer Active Hang Farias MD Active ALBUTEROL SULFATE 0.083 % NEBU SOLN one vial per nebulizer every 4-6 hours as needed ALBUTEROL SULFATE 97953543126 No Longer Active Hang Farias MD Active PREDNISONE 20 MG TAB 2 tabs today, then 1 tab by mouth days 2-5 PREDNISONE 23484269886 No Longer Active Hang Farias MD Active AZITHROMYCIN 250 MG TABS 2 po qd x 1 day, then 1 po qd x 4 days AZITHROMYCIN 51001783747 No Longer Active Abelardo Butler DO Active PREDNISONE 20 MG TAB 2 tabs today, then 1 tab by mouth days 2-5 PREDNISONE 20 MG TAB 857617 PREDNISONE Inactive ALBUTEROL SULFATE 0.083 % NEBU SOLN one vial per nebulizer every 4-6 hours as needed ALBUTEROL SULFATE 0.083 % NEBU SOLN 014946 ALBUTEROL SULFATE Inactive AZITHROMYCIN 250 MG TABS 2 po qd x 1 day, then 1 po qd x 4 days AZITHROMYCIN 250 MG TABS 9041095 AZITHROMYCIN Inactive TERBINAFINE HCL 250 MG TABS 1 qDay for rash TERBINAFINE HCL 250 MG TABS 705493 TERBINAFINE HCL Inactive PREDNISONE 20 MG TAB take 3 tabs daily for 3 days, 2 tabs daily for 3 days, 1 tab daily for 3 days, 1/2 tab daily for 3 days PREDNISONE 20 MG TAB 165735 PREDNISONE Inactive Vital Signs Date Name Value Unit Range Description blood pressure, diastolic - 8462-4 79 mm[Hg] [...] Measured Encounters Code Encounter Date Provider Facility CPT-95045 Level 3 Est. 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 CPT-58612 Level 3 Est. Patient 17:13:20 TRACK LAMINATING MACHINE TENDER Abelardo Butler DO [facility] Procedures Code Procedure Name Date Entry Date Standard Description CPT-26046 [place] only w graphic rec 11:10:43 CDT CPT-46515 Audiometry - Co Only 11:10:43 CDT CPT-83754 Spec Collection and Handling Fee 11:10:43 CDT
--- OUTSIDE RECORDS SUMMARY | 2017-08-24 06:12 | XMS REPORT | Clinical Summary ---
Author Author Admin, [facility] Organization [employer] Address Unknown Phone Unavailable Allergies, Adverse Reactions, [...] 1 po q8hr PRN Muscle Spasm METHOCARBAMOL 77158958503 No Longer Active Hang Farias MD Active ZOFRAN 4 MG TABS 1 po q6hr PRN Nausea ONDANSETRON HCL 45438392980 No Longer Active Hang Farias MD Active FLONASE 50 MCG/ACT SUSP 1 spray each nostril q hs FLUTICASONE PROPIONATE Active Elder Dominguez MD Active MELOXICAM 15 MG TABS 1 po q day for pain with food MELOXICAM 73022463926 Active Elder Dominguez MD Active OXYCODONE HCL 5 MG ORAL TABS 1 tablet every 4-6 hours p.r.n. pain sparingly OXYCODONE HCL 31776399896 Active Elder Dominguez MD Active CHERATUSSIN AC 100-10 MG/5ML SYRP 1 tsp by mouth every 4 hours as needed for cough GUAIFENESIN-CODEINE 20607379967 No Longer Active Elder Dominguez MD Active PREDNISONE 20 MG TAB take 3 tabs daily for 3 days, 2 tabs daily for 3 days, 1 tab daily for 3 days, 1/2 tab daily for 3 days PREDNISONE 29358790414 No Longer Active Hang Farias MD Active TERBINAFINE HCL 250 MG TABS 1 qDay for rash TERBINAFINE HCL 39860021357 No Longer Active Hang Farias MD Active ALBUTEROL SULFATE 0.083 % [facility] one vial per nebulizer every 4-6 hours as needed ALBUTEROL SULFATE 96823136511 No Longer Active Hang Farias MD Active PREDNISONE 20 MG TAB 2 tabs today, then 1 tab by mouth days 2-5 PREDNISONE 92403850103 No Longer Active Hang Farias MD Active AZITHROMYCIN 250 MG TABS 2 po qd x 1 day, then 1 po qd x 4 days AZITHROMYCIN 72199579902 No Longer Active Abelardo Butler DO Active PREDNISONE 20 MG TAB 2 tabs today, then 1 tab by mouth days 2-5 PREDNISONE 20 MG TAB 724930 PREDNISONE Inactive ALBUTEROL SULFATE 0.083 % NEBU SOLN one vial per nebulizer every 4-6 hours as needed ALBUTEROL SULFATE 0.083 % NEBU SOLN 210083 ALBUTEROL SULFATE Inactive CHERATUSSIN AC 100-10 MG/5ML SYRP 1 tsp by mouth every 4 hours as needed for cough CHERATUSSIN AC 100-10 MG/5ML SYRP 135337 GUAIFENESIN-CODEINE Inactive ZOFRAN 4 MG TABS 1 po q6hr PRN Nausea ZOFRAN 4 MG TABS 299351 ONDANSETRON HCL Inactive METHOCARBAMOL 750 MG TABS 1 po q8hr PRN Muscle Spasm METHOCARBAMOL 750 MG TABS 550651 METHOCARBAMOL Inactive AZITHROMYCIN 250 MG TABS 2 po qd x 1 day, then 1 po qd x 4 days AZITHROMYCIN 250 MG TABS 4111733 AZITHROMYCIN Inactive TERBINAFINE HCL 250 MG TABS 1 qDay for rash TERBINAFINE HCL 250 MG TABS 723102 TERBINAFINE HCL Inactive PREDNISONE 20 MG TAB take 3 tabs daily for 3 days, 2 tabs daily for 3 days, 1 tab daily for 3 days, 1/2 tab daily for 3 days PREDNISONE 20 MG TAB 523047 PREDNISONE Inactive Vital Signs Date Name Value [...] Measured Encounters Code Encounter Date Provider Facility CPT-58593 Level 3 Est. Patient 12:32:48 CDT Hang Farias MD [facility] CPT-88972 Level 3 Est. Patient 10:29:19 CDT Elder Dominguez MD [facility] CPT-76738 Level 3 Est. 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 Patient 17:13:20 PLASTIC SURGERY COORDINATOR Abelardo Butler DO [facility] Procedures Code Procedure Name Date Entry Date Standard Description CPT-87614 Sternum 2V - XRAY USE ONLY 10:41:33 CDT CPT-71344 [place] only w graphic rec 11:10:43 CDT CPT-86957 Audiometry - Co Only 11:10:43 CDT CPT-19031 Spec Collection and Handling Fee 11:10:43 CDT
--- OUTSIDE RECORDS SUMMARY | 2017-08-24 06:13 | XMS REPORT | Clinical Summary ---
Author Author Admin, [facility] Organization [employer] Address Unknown Phone Unavailable Allergies, Adverse Reactions, [...] other bone Shoulder pain, left 719.41 Active aHng Farias MD Pain in joint involving shoulder [...] q pm, if needed for cough PROMETHAZINE-CODEINE 12366635071 Active Shadyllina Svetlana DEJESUSN Active PREDNISONE 20 MG TAB 2 tabs daily for 3 days, 1 tab daily for 3 days, 1/2 tab daily for 2 days PREDNISONE 10036358246 No Longer Active Jillina Mansoorl AUTO CARE CENTER MANAGER Active AZITHROMYCIN 250 MG TABS 2 po qd x 1 day, then 1 po qd x 4 days AZITHROMYCIN 54279537009 No Longer Active Jillina Framerlinl AUTO CARE CENTER MANAGER Active VENTOLIN HFA 108 (90 BASE) MCG/ACT AERS 1-2 puffs every 4 hours if needed for cough/congestion ALBUTEROL SULFATE 69535071557 Active Shadyllina Mansoorl AUTO CARE CENTER MANAGER Active OXYCODONE HCL 5 MG ORAL TABS 1 tablet every 4-6 hours p.r.n. pain sparingly OXYCODONE HCL 97519485737 No Longer Active Shadyllina Mansoorl AUTO CARE CENTER MANAGER Active MELOXICAM 15 MG TABS 1 po q day for pain with food MELOXICAM 89870310485 No Longer Active Shadyllina Svetlana DEJESUSN Active METHOCARBAMOL 750 MG TABS 1 po q8hr PRN Muscle Spasm METHOCARBAMOL 29432149500 No Longer Active Hang Farias MD Active ZOFRAN 4 MG TABS 1 po q6hr PRN Nausea ONDANSETRON HCL 26827665797 No Longer Active Hang Farias MD Active FLONASE 50 MCG/ACT SUSP 1 spray each nostril q hs FLUTICASONE PROPIONATE Active Elder Dominguez MD Active CHERATUSSIN AC 100-10 MG/5ML SYRP 1 tsp by mouth every 4 hours as needed for cough GUAIFENESIN-CODEINE 99570478864 No Longer Active Elder Dominguez MD Active PREDNISONE 20 MG TAB take 3 tabs daily for 3 days, 2 tabs daily for 3 days, 1 tab daily for 3 days, 1/2 tab daily for 3 days PREDNISONE 48775242194 No Longer Active Hang Farias MD Active TERBINAFINE HCL 250 MG TABS 1 qDay for rash TERBINAFINE HCL 35844656277 No Longer Active Hang Farias MD Active ALBUTEROL SULFATE 0.083 % NEBU SOLN one vial per nebulizer every 4-6 hours as needed ALBUTEROL SULFATE 90131025455 No Longer Active Hang Farias MD Active PREDNISONE 20 MG TAB 2 tabs today, then 1 tab by mouth days 2-5 PREDNISONE 13935487813 No Longer Active Hang Farias MD Active AZITHROMYCIN 250 MG TABS 2 po qd x 1 day, then 1 po qd x 4 days AZITHROMYCIN 65251289915 No Longer Active Abelardo Butler DO Active PREDNISONE 20 MG TAB 2 tabs today, then 1 tab by mouth days 2-5 PREDNISONE 20 MG TAB 831906 PREDNISONE Inactive ALBUTEROL SULFATE 0.083 % NEBU SOLN one vial per nebulizer every 4-6 hours as needed ALBUTEROL SULFATE 0.083 % NEBU SOLN 210723 ALBUTEROL SULFATE Inactive CHERATUSSIN AC 100-10 MG/5ML SYRP 1 tsp by mouth every 4 hours as needed for cough CHERATUSSIN AC 100-10 MG/5ML SYRP 843450 GUAIFENESIN-CODEINE Inactive ZOFRAN 4 MG TABS 1 po q6hr PRN Nausea ZOFRAN 4 MG TABS 704633 ONDANSETRON HCL Inactive METHOCARBAMOL 750 MG TABS 1 po q8hr PRN Muscle Spasm METHOCARBAMOL 750 MG TABS 712600 METHOCARBAMOL Inactive MELOXICAM 15 MG TABS 1 po q day for pain with food MELOXICAM 15 MG TABS 361299 MELOXICAM Inactive OXYCODONE HCL 5 MG ORAL TABS 1 tablet every 4-6 hours p.r.n. pain sparingly OXYCODONE HCL 5 MG ORAL TABS 9081886 OXYCODONE HCL Inactive AZITHROMYCIN 250 MG TABS 2 po qd x 1 day, then 1 po qd x 4 days AZITHROMYCIN 250 MG TABS 9200307 AZITHROMYCIN Inactive TERBINAFINE HCL 250 MG TABS 1 qDay for rash TERBINAFINE HCL 250 MG TABS 082413 TERBINAFINE HCL Inactive PREDNISONE 20 MG TAB take 3 tabs daily for 3 days, 2 tabs daily for 3 days, 1 tab daily for 3 days, 1/2 tab daily for 3 days PREDNISONE 20 MG TAB 282494 PREDNISONE Inactive AZITHROMYCIN 250 MG TABS 2 po qd x 1 day, then 1 po qd x 4 days AZITHROMYCIN 250 MG TABS 2281770 AZITHROMYCIN Inactive PREDNISONE 20 MG TAB 2 tabs daily for 3 days, 1 tab daily for 3 days, 1/2 tab daily for 2 days PREDNISONE 20 MG TAB 469599 PREDNISONE Inactive Vital Signs Date Name Value [...] Measured Encounters Code Encounter Date Provider Facility CPT-14596 Level 3 Est. Patient 10:56:20 CDT Norman Mota APRN [facility] CPT-27692 Level 3 Est. Patient 12:32:48 CDT Hang Farias MD [facility] CPT-05642 Level 3 Est. Patient 10:29:19 CDT Elder Dominguez MD [facility] CPT-29660 Level 3 Est. 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 Patient 17:13:20 TUFTING CREELER Abelardo Butler DO [facility] Procedures Code Procedure Name Date Entry Date Standard Description CPT-24491 Sternum 2V - XRAY USE ONLY 10:41:33 CDT CPT-03132 [place] only w graphic rec 11:10:43 CDT CPT-92131 Audiometry - Co Only 11:10:43 CDT CPT-30342 Spec Collection and Handling Fee 11:10:43 CDT
--- OUTSIDE RECORDS SUMMARY | 2017-08-24 06:13 | XMS REPORT | Clinical Summary ---
Author Author Admin, [facility] Organization [employer] Address Unknown Phone Unavailable Allergies, Adverse Reactions, [...] q pm, if needed for cough PROMETHAZINE-CODEINE 62365017266 Active Louiseina Svetlana DEJESUSN Active PREDNISONE 20 MG TAB 2 tabs daily for 3 days, 1 tab daily for 3 days, 1/2 tab daily for 2 days PREDNISONE 63627427993 Active Jillina Mansoorl SUPPLY SPECIALIST Active AZITHROMYCIN 250 MG TABS 2 po qd x 1 day, then 1 po qd x 4 days AZITHROMYCIN 61453334819 No Longer Active Shadyllina Mansoorl SUPPLY SPECIALIST Active VENTOLIN HFA 108 (90 BASE) MCG/ACT AERS 1-2 puffs every 4 hours if needed for cough/congestion ALBUTEROL SULFATE 72087996450 Active Shadyllina Mansoorl SUPPLY SPECIALIST Active OXYCODONE HCL 5 MG ORAL TABS 1 tablet every 4-6 hours p.r.n. pain sparingly OXYCODONE HCL 26591537680 No Longer Active Shadyllina Svetlana CAT Active MELOXICAM 15 MG TABS 1 po q day for pain with food MELOXICAM 11333961513 No Longer Active Shadyllina Svetlana DEJESUSN Active METHOCARBAMOL 750 MG TABS 1 po q8hr PRN Muscle Spasm METHOCARBAMOL 78467879324 No Longer Active Hang Farias MD Active ZOFRAN 4 MG TABS 1 po q6hr PRN Nausea ONDANSETRON HCL 74724722653 No Longer Active Hang Farias MD Active FLONASE 50 MCG/ACT SUSP 1 spray each nostril q hs FLUTICASONE PROPIONATE Active Elder Dominguez MD Active CHERATUSSIN AC 100-10 MG/5ML SYRP 1 tsp by mouth every 4 hours as needed for cough GUAIFENESIN-CODEINE 33668079221 No Longer Active Elder Dominguez MD Active PREDNISONE 20 MG TAB take 3 tabs daily for 3 days, 2 tabs daily for 3 days, 1 tab daily for 3 days, 1/2 tab daily for 3 days PREDNISONE 87724265828 No Longer Active Hang Farias MD Active TERBINAFINE HCL 250 MG TABS 1 qDay for rash TERBINAFINE HCL 95889114101 No Longer Active Hang Farias MD Active ALBUTEROL SULFATE 0.083 % NEBU SOLN one vial per nebulizer every 4-6 hours as needed ALBUTEROL SULFATE 18920267042 No Longer Active Hang Farias MD Active PREDNISONE 20 MG TAB 2 tabs today, then 1 tab by mouth days 2-5 PREDNISONE 98324352402 No Longer Active Hang Farias MD Active AZITHROMYCIN 250 MG TABS 2 po qd x 1 day, then 1 po qd x 4 days AZITHROMYCIN 06515807200 No Longer Active Abelardo Butler DO Active PREDNISONE 20 MG TAB 2 tabs today, then 1 tab by mouth days 2-5 PREDNISONE 20 MG TAB 268816 PREDNISONE Inactive ALBUTEROL SULFATE 0.083 % NEBU SOLN one vial per nebulizer every 4-6 hours as needed ALBUTEROL SULFATE 0.083 % NEBU SOLN 334814 ALBUTEROL SULFATE Inactive CHERATUSSIN AC 100-10 MG/5ML SYRP 1 tsp by mouth every 4 hours as needed for cough CHERATUSSIN AC 100-10 MG/5ML SYRP 390232 GUAIFENESIN-CODEINE Inactive ZOFRAN 4 MG TABS 1 po q6hr PRN Nausea ZOFRAN 4 MG TABS 692739 ONDANSETRON HCL Inactive METHOCARBAMOL 750 MG TABS 1 po q8hr PRN Muscle Spasm METHOCARBAMOL 750 MG TABS 066108 METHOCARBAMOL Inactive MELOXICAM 15 MG TABS 1 po q day for pain with food MELOXICAM 15 MG TABS 001638 MELOXICAM Inactive OXYCODONE HCL 5 MG ORAL TABS 1 tablet every 4-6 hours p.r.n. pain sparingly OXYCODONE HCL 5 MG ORAL TABS 3395521 OXYCODONE HCL Inactive AZITHROMYCIN 250 MG TABS 2 po qd x 1 day, then 1 po qd x 4 days AZITHROMYCIN 250 MG TABS 2098053 AZITHROMYCIN Inactive TERBINAFINE HCL 250 MG TABS 1 qDay for rash TERBINAFINE HCL 250 MG TABS 802304 TERBINAFINE HCL Inactive PREDNISONE 20 MG TAB take 3 tabs daily for 3 days, 2 tabs daily for 3 days, 1 tab daily for 3 days, 1/2 tab daily for 3 days PREDNISONE 20 MG TAB 905399 PREDNISONE Inactive AZITHROMYCIN 250 MG TABS 2 po qd x 1 day, then 1 po qd x 4 days AZITHROMYCIN 250 MG TABS 9990455 AZITHROMYCIN Inactive Vital Signs Date Name Value Unit [...] Measured Encounters Code Encounter Date Provider Facility CPT-62681 Level 3 Est. [facility] 10:56:20 [facility] Est. Patient 12:32:48 CDT Hang Farias MD [facility] CPT-40680 Level 3 Est. Patient 10:29:19 CDT Elder Dominguez MD [facility] CPT-88036 Level 3 Est. 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 Patient 17:13:20 SHOTBLAST OPERATOR Abelardo Butler DO [facility] Procedures Code Procedure Name Date Entry Date Standard Description CPT-04244 Sternum 2V - XRAY USE ONLY 10:41:33 CDT CPT-55340 [place] only w graphic rec 11:10:43 CDT CPT-27048 Audiometry - Co Only 11:10:43 CDT CPT-22553 Spec Collection and Handling Fee 11:10:43 CDT
--- OUTSIDE RECORDS SUMMARY | 2017-08-24 06:13 | XMS REPORT | Clinical Summary ---
Author Author Admin, [facility] Organization [facility] Address Unknown Phone Unavailable Allergies, Adverse Reactions, [...] 1 po q8hr PRN Muscle Spasm METHOCARBAMOL 59588577475 Active Elder Dominguez MD Active FLONASE 50 MCG/ACT SUSP 1 spray each nostril q hs FLUTICASONE PROPIONATE Active Elder Dominguez MD Active MELOXICAM 15 MG TABS 1 po q day for pain with food MELOXICAM 71304162986 Active Elder Dominguez MD Active ZOFRAN 4 MG TABS 1 po q6hr PRN Nausea ONDANSETRON HCL 66856397172 Active Elder Dominguez MD Active OXYCODONE HCL 5 MG ORAL TABS 1 tablet every 4-6 hours p.r.n. pain sparingly OXYCODONE HCL 98848646365 Active Elder Dominguez MD Active CHERATUSSIN AC 100-10 MG/5ML SYRP 1 tsp by mouth every 4 hours as needed for cough GUAIFENESIN-CODEINE 44339291566 No Longer Active Elder Dominguez MD Active PREDNISONE 20 MG TAB take 3 tabs daily for 3 days, 2 tabs daily for 3 days, 1 tab daily for 3 days, 1/2 tab daily for 3 days PREDNISONE 31993227081 No Longer Active Hang Farias MD Active TERBINAFINE HCL 250 MG TABS 1 qDay for rash TERBINAFINE HCL 19868880672 No Longer Active Hang Farias MD Active ALBUTEROL SULFATE 0.083 % NEBU SOLN one vial per nebulizer every 4-6 hours as needed ALBUTEROL SULFATE 35438700049 No Longer Active Hang Farias MD Active PREDNISONE 20 MG TAB 2 tabs today, then 1 tab by mouth days 2-5 PREDNISONE 39348011967 No Longer Active Hang Farias MD Active AZITHROMYCIN 250 MG TABS 2 po qd x 1 day, then 1 po qd x 4 days AZITHROMYCIN 69653264990 No Longer Active Aeblardo Butler DO Active PREDNISONE 20 MG TAB 2 tabs today, then 1 tab by mouth days 2-5 PREDNISONE 20 MG TAB 267295 PREDNISONE Inactive ALBUTEROL SULFATE 0.083 % NEBU SOLN one vial per nebulizer every 4-6 hours as needed ALBUTEROL SULFATE 0.083 % NEBU SOLN 746073 ALBUTEROL SULFATE Inactive CHERATUSSIN AC 100-10 MG/5ML SYRP 1 tsp by mouth every 4 hours as needed for cough CHERATUSSIN AC 100-10 MG/5ML SYRP 924111 GUAIFENESIN-CODEINE Inactive AZITHROMYCIN 250 MG TABS 2 po qd x 1 day, then 1 po qd x 4 days AZITHROMYCIN 250 MG TABS 2631559 AZITHROMYCIN Inactive TERBINAFINE HCL 250 MG TABS 1 qDay for rash TERBINAFINE HCL 250 MG TABS 568763 TERBINAFINE HCL Inactive PREDNISONE 20 MG TAB take 3 tabs daily for 3 days, 2 tabs daily for 3 days, 1 tab daily for 3 days, 1/2 tab daily for 3 days PREDNISONE 20 MG TAB 108473 PREDNISONE Inactive Vital Signs Date Name Value [...] Measured Encounters Code Encounter Date Provider Facility CPT-20427 Level 3 Est. Patient 10:29:19 CDT Elder Dominguez MD [facility] CPT-04896 Level 3 Est. Patient 17:22:49 MELTING OPERATOR Hang Farias MD [facility] CPT-47691 Level 3 Est. Patient 17:13:20 MELTING OPERATOR Abelardo Butler DO [facility] Procedures Code Procedure Name Date Entry Date Standard Description CPT-60218 Sternum 2V - XRAY USE ONLY 10:41:33 CDT CPT-03119 [place] only w graphic rec 11:10:43 CDT CPT-21307 Audiometry - Co Only 11:10:43 CDT CPT-84333 Spec Collection and Handling Fee 11:10:43 CDT
--- OUTSIDE RECORDS SUMMARY | 2017-08-24 06:13 | XMS REPORT | Clinical Summary ---
Author Author Admin, [facility] Organization [facility] Address Unknown Phone Unavailable Allergies, Adverse Reactions, [...] every 12 hours for 10 days AMOXICILLIN 51331283769 Active Carter Grant MD Active PREDNISONE 20 MG TABS Take 2 daily for 5 days and then 1 daily for 5 days PREDNISONE 14159157350 Active Carter Grant MD Active FLONASE 50 MCG/ACT SUSP 1 spray each nostril q hs FLUTICASONE PROPIONATE No Longer Active Carter Grant MD Active PROMETHAZINE-CODEINE 6.25-10 MG/5ML SYRP 1 tsp by mouth q pm, if needed for cough PROMETHAZINE-CODEINE 98546071183 No Longer Active Carter Grant MD Active PREDNISONE 20 MG TAB 2 tabs daily for 3 days, 1 tab daily for 3 days, 1/2 tab daily for 2 days PREDNISONE 89881100390 No Longer Active Jillina Svetlana DEJESUSN Active AZITHROMYCIN 250 MG TABS 2 po qd x 1 day, then 1 po qd x 4 days AZITHROMYCIN 06817085680 No Longer Active Jillina Frazell HOME DELIVERY DRIVER Active VENTOLIN HFA 108 (90 BASE) MCG/ACT AERS 1-2 puffs every 4 hours if needed for cough/congestion ALBUTEROL SULFATE 17153413146 Active Jillina Frazell HOME DELIVERY DRIVER Active OXYCODONE HCL 5 MG ORAL TABS 1 tablet every 4-6 hours p.r.n. pain sparingly OXYCODONE HCL 21753587146 No Longer Active Jillina Frazell HOME DELIVERY DRIVER Active MELOXICAM 15 MG TABS 1 po q day for pain with food MELOXICAM 14585282589 No Longer Active Jillina Frazell HOME DELIVERY DRIVER Active METHOCARBAMOL 750 MG TABS 1 po q8hr PRN Muscle Spasm METHOCARBAMOL 81650988994 No Longer Active Hang Farias MD Active ZOFRAN 4 MG TABS 1 po q6hr PRN Nausea ONDANSETRON HCL 15131139513 No Longer Active Hang Farias MD Active CHERATUSSIN AC 100-10 MG/5ML SYRP 1 tsp by mouth every 4 hours as needed for cough GUAIFENESIN-CODEINE 07017919718 No Longer Active Elder Dominguez MD Active PREDNISONE 20 MG TAB take 3 tabs daily for 3 days, 2 tabs daily for 3 days, 1 tab daily for 3 days, 1/2 tab daily for 3 days PREDNISONE 10989752588 No Longer Active Hang Farias MD Active TERBINAFINE HCL 250 MG TABS 1 qDay for rash TERBINAFINE HCL 01867570037 No Longer Active Hang Farias MD Active ALBUTEROL SULFATE 0.083 % NEBU SOLN one vial per nebulizer every 4-6 hours as needed ALBUTEROL SULFATE 44582836933 No Longer Active Hang Farias MD Active PREDNISONE 20 MG TAB 2 tabs today, then 1 tab by mouth days 2-5 PREDNISONE 82374449191 No Longer Active Hang Farias MD Active AZITHROMYCIN 250 MG TABS 2 po qd x 1 day, then 1 po qd x 4 days AZITHROMYCIN 09205454932 No Longer Active Abelardo Butler DO Active PREDNISONE 20 MG TAB 2 tabs today, then 1 tab by mouth days 2-5 PREDNISONE 20 MG TAB 367222 PREDNISONE Inactive ALBUTEROL SULFATE 0.083 % NEBU SOLN one vial per nebulizer every 4-6 hours as needed ALBUTEROL SULFATE 0.083 % NEBU SOLN 226330 ALBUTEROL SULFATE Inactive CHERATUSSIN AC 100-10 MG/5ML SYRP 1 tsp by mouth every 4 hours as needed for cough CHERATUSSIN AC 100-10 MG/5ML SYRP 496130 GUAIFENESIN-CODEINE Inactive ZOFRAN 4 MG TABS 1 po q6hr PRN Nausea ZOFRAN 4 MG TABS 080302 ONDANSETRON HCL Inactive METHOCARBAMOL 750 MG TABS 1 po q8hr PRN Muscle Spasm METHOCARBAMOL 750 MG TABS 511406 METHOCARBAMOL Inactive MELOXICAM 15 MG TABS 1 po q day for pain with food MELOXICAM 15 MG TABS 060023 MELOXICAM Inactive OXYCODONE HCL 5 MG ORAL TABS 1 tablet every 4-6 hours p.r.n. pain sparingly OXYCODONE HCL 5 MG ORAL TABS 6871138 OXYCODONE HCL Inactive PROMETHAZINE-CODEINE 6.25-10 MG/5ML SYRP 1 tsp by mouth q pm, if needed for cough PROMETHAZINE-CODEINE 6.25-10 MG/5ML SYRP 950826 PROMETHAZINE-CODEINE Inactive FLONASE 50 MCG/ACT SUSP 1 spray each nostril q hs FLONASE 50 MCG/ACT SUSP 3033481 FLUTICASONE PROPIONATE Inactive AZITHROMYCIN 250 MG TABS 2 po qd x 1 day, then 1 po qd x 4 days AZITHROMYCIN 250 MG TABS 3782716 AZITHROMYCIN Inactive TERBINAFINE HCL 250 MG TABS 1 qDay for rash TERBINAFINE HCL 250 MG TABS 599912 TERBINAFINE HCL Inactive PREDNISONE 20 MG TAB take 3 tabs daily for 3 days, 2 tabs daily for 3 days, 1 tab daily for 3 days, 1/2 tab daily for 3 days PREDNISONE 20 MG TAB 757166 PREDNISONE Inactive AZITHROMYCIN 250 MG TABS 2 po qd x 1 day, then 1 po qd x 4 days AZITHROMYCIN 250 MG TABS 0826024 AZITHROMYCIN Inactive PREDNISONE 20 MG TAB 2 tabs daily for 3 days, 1 tab daily for 3 days, 1/2 tab daily for 2 days PREDNISONE 20 MG TAB 000017 PREDNISONE Inactive Vital Signs Date Name Value [...] Measured Encounters Code Encounter Date Provider Facility CPT-48990 Level 3 Est. Patient 15:12:30 CDT Carter Grant MD [facility] CPT-70882 Level 3 Est. Patient 10:56:20 CDT Norman Mota APRN [facility] CPT-92099 Level 3 Est. Patient 12:32:48 CDT Hang Farias MD [facility] CPT-61988 Level 3 Est. Patient 10:29:19 CDT Elder Dominguez MD [facility] CPT-85720 Level 3 Est. Patient 17:22:49 FOREST ENGINEER Hang Farias MD [facility] CPT-43159 Level 3 Est. Patient 17:13:20 FOREST ENGINEER Abelardo Butler DO [facility] Procedures Code Procedure Name Date Entry Date Standard Description CPT-52634 Sternum 2V - XRAY USE ONLY 10:41:33 CDT CPT-51692 [place] only w graphic rec 11:10:43 CDT CPT-56564 Audiometry - Co Only 11:10:43 CDT CPT-70318 Spec Collection and Handling Fee 11:10:43 CDT
--- OUTSIDE RECORDS SUMMARY | 2017-08-24 06:14 | XMS REPORT | Clinical Summary ---
Author Author Admin, [facility] Organization [employer] Address Unknown Phone Unavailable Allergies, Adverse Reactions, [...] 1 po q8hr PRN Muscle Spasm METHOCARBAMOL 84938705313 No Longer Active Hang Farias MD Active ZOFRAN 4 MG TABS 1 po q6hr PRN Nausea ONDANSETRON HCL 58795183317 No Longer Active Hang Farias MD Active FLONASE 50 MCG/ACT SUSP 1 spray each nostril q hs FLUTICASONE PROPIONATE Active Elder Dominguez MD Active MELOXICAM 15 MG TABS 1 po q day for pain with food MELOXICAM 15278279619 Active Elder Dominguez MD Active OXYCODONE HCL 5 MG ORAL TABS 1 tablet every 4-6 hours p.r.n. pain sparingly OXYCODONE HCL 41428564582 Active Elder Dominguez MD Active CHERATUSSIN AC 100-10 MG/5ML SYRP 1 tsp by mouth every 4 hours as needed for cough GUAIFENESIN-CODEINE 04590665920 No Longer Active Elder Dominguez MD Active PREDNISONE 20 MG TAB take 3 tabs daily for 3 days, 2 tabs daily for 3 days, 1 tab daily for 3 days, 1/2 tab daily for 3 days PREDNISONE 73579097102 No Longer Active Hang Farias MD Active TERBINAFINE HCL 250 MG TABS 1 qDay for rash TERBINAFINE HCL 02769636055 No Longer Active Hang Farias MD Active ALBUTEROL SULFATE 0.083 % [facility] one vial per nebulizer every 4-6 hours as needed ALBUTEROL SULFATE 44044692155 No Longer Active Hang Farias MD Active PREDNISONE 20 MG TAB 2 tabs today, then 1 tab by mouth days 2-5 PREDNISONE 18971830885 No Longer Active Hang Farias MD Active AZITHROMYCIN 250 MG TABS 2 po qd x 1 day, then 1 po qd x 4 days AZITHROMYCIN 54281700192 No Longer Active Abelardo Butler DO Active PREDNISONE 20 MG TAB 2 tabs today, then 1 tab by mouth days 2-5 PREDNISONE 20 MG TAB 111295 PREDNISONE Inactive ALBUTEROL SULFATE 0.083 % NEBU SOLN one vial per nebulizer every 4-6 hours as needed ALBUTEROL SULFATE 0.083 % NEBU SOLN 126578 ALBUTEROL SULFATE Inactive CHERATUSSIN AC 100-10 MG/5ML SYRP 1 tsp by mouth every 4 hours as needed for cough CHERATUSSIN AC 100-10 MG/5ML SYRP 931640 GUAIFENESIN-CODEINE Inactive ZOFRAN 4 MG TABS 1 po q6hr PRN Nausea ZOFRAN 4 MG TABS 181945 ONDANSETRON HCL Inactive METHOCARBAMOL 750 MG TABS 1 po q8hr PRN Muscle Spasm METHOCARBAMOL 750 MG TABS 589138 METHOCARBAMOL Inactive AZITHROMYCIN 250 MG TABS 2 po qd x 1 day, then 1 po qd x 4 days AZITHROMYCIN 250 MG TABS 2200079 AZITHROMYCIN Inactive TERBINAFINE HCL 250 MG TABS 1 qDay for rash TERBINAFINE HCL 250 MG TABS 440433 TERBINAFINE HCL Inactive PREDNISONE 20 MG TAB take 3 tabs daily for 3 days, 2 tabs daily for 3 days, 1 tab daily for 3 days, 1/2 tab daily for 3 days PREDNISONE 20 MG TAB 757062 PREDNISONE Inactive Vital Signs Date Name Value [...] Measured Encounters Code Encounter Date Provider Facility CPT-31714 Level 3 Est. Patient 12:32:48 CDT Hang Farias MD [facility] CPT-19800 Level 3 Est. Patient 10:29:19 CDT Elder Dominguez MD [facility] CPT-22608 Level 3 Est. Patient 17:22:49 GROUP HOME COUNSELOR Hang Farias MD [facility] CPT-99132 Level 3 Est. Patient 17:13:20 GROUP HOME COUNSELOR Abelardo Butler DO [facility] Procedures Code Procedure Name Date Entry Date Standard Description CPT-58529 Sternum 2V - XRAY USE ONLY 10:41:33 CDT CPT-74482 [place] only w graphic rec 11:10:43 CDT CPT-87128 Audiometry - Co Only 11:10:43 CDT CPT-48020 Spec Collection and Handling Fee 11:10:43 CDT
--- OUTSIDE RECORDS SUMMARY | 2017-08-24 06:14 | XMS REPORT | Clinical Summary ---
Author Author Admin, [facility] Organization [employer] Address Unknown Phone Unavailable Allergies, Adverse Reactions, [...] every 12 hours for 10 days AMOXICILLIN 65073767583 Active Carter Grant MD Active PREDNISONE 20 MG TABS Take 2 daily for 5 days and then 1 daily for 5 days PREDNISONE 65593395052 Active Carter Grant MD Active FLONASE 50 MCG/ACT SUSP 1 spray each nostril q hs FLUTICASONE PROPIONATE No Longer Active Carter Grant MD Active PROMETHAZINE-CODEINE 6.25-10 MG/5ML SYRP 1 tsp by mouth q pm, if needed for cough PROMETHAZINE-CODEINE 11302190193 No Longer Active Carter Grant MD Active PREDNISONE 20 MG TAB 2 tabs daily for 3 days, 1 tab daily for 3 days, 1/2 tab daily for 2 days PREDNISONE 87637089829 No Longer Active Jillina Svtelana DEJESUSN Active AZITHROMYCIN 250 MG TABS 2 po qd x 1 day, then 1 po qd x 4 days AZITHROMYCIN 79892767864 No Longer Active Jillina Frazell E COMMERCE SPECIALIST Active VENTOLIN HFA 108 (90 BASE) MCG/ACT AERS 1-2 puffs every 4 hours if needed for cough/congestion ALBUTEROL SULFATE 81149726143 Active Jillina Frazell E COMMERCE SPECIALIST Active OXYCODONE HCL 5 MG ORAL TABS 1 tablet every 4-6 hours p.r.n. pain sparingly OXYCODONE HCL 93541097807 No Longer Active Jillina Frazell E COMMERCE SPECIALIST Active MELOXICAM 15 MG TABS 1 po q day for pain with food MELOXICAM 54734135404 No Longer Active Jillina Frazell E COMMERCE SPECIALIST Active METHOCARBAMOL 750 MG TABS 1 po q8hr PRN Muscle Spasm METHOCARBAMOL 45885690703 No Longer Active Hang Farias MD Active ZOFRAN 4 MG TABS 1 po q6hr PRN Nausea ONDANSETRON HCL 74658366401 No Longer Active Hang Farias MD Active CHERATUSSIN AC 100-10 MG/5ML SYRP 1 tsp by mouth every 4 hours as needed for cough GUAIFENESIN-CODEINE 86767566914 No Longer Active Elder Dominguez MD Active PREDNISONE 20 MG TAB take 3 tabs daily for 3 days, 2 tabs daily for 3 days, 1 tab daily for 3 days, 1/2 tab daily for 3 days PREDNISONE 56929025781 No Longer Active Hang Farias MD Active TERBINAFINE HCL 250 MG TABS 1 qDay for rash TERBINAFINE HCL 28848395150 No Longer Active Hang Farias MD Active ALBUTEROL SULFATE 0.083 % NEBU SOLN one vial per nebulizer every 4-6 hours as needed ALBUTEROL SULFATE 47793569836 No Longer Active Hang Farias MD Active PREDNISONE 20 MG TAB 2 tabs today, then 1 tab by mouth days 2-5 PREDNISONE 92598652062 No Longer Active Hang Farias MD Active AZITHROMYCIN 250 MG TABS 2 po qd x 1 day, then 1 po qd x 4 days AZITHROMYCIN 86275554752 No Longer Active Abelardo Butler DO Active PREDNISONE 20 MG TAB 2 tabs today, then 1 tab by mouth days 2-5 PREDNISONE 20 MG TAB 249546 PREDNISONE Inactive ALBUTEROL SULFATE 0.083 % NEBU SOLN one vial per nebulizer every 4-6 hours as needed ALBUTEROL SULFATE 0.083 % NEBU SOLN 390813 ALBUTEROL SULFATE Inactive CHERATUSSIN AC 100-10 MG/5ML SYRP 1 tsp by mouth every 4 hours as needed for cough CHERATUSSIN AC 100-10 MG/5ML SYRP 857325 GUAIFENESIN-CODEINE Inactive ZOFRAN 4 MG TABS 1 po q6hr PRN Nausea ZOFRAN 4 MG TABS 707581 ONDANSETRON HCL Inactive METHOCARBAMOL 750 MG TABS 1 po q8hr PRN Muscle Spasm METHOCARBAMOL 750 MG TABS 491447 METHOCARBAMOL Inactive MELOXICAM 15 MG TABS 1 po q day for pain with food MELOXICAM 15 MG TABS 431339 MELOXICAM Inactive OXYCODONE HCL 5 MG ORAL TABS 1 tablet every 4-6 hours p.r.n. pain sparingly OXYCODONE HCL 5 MG ORAL TABS 9040048 OXYCODONE HCL Inactive PROMETHAZINE-CODEINE 6.25-10 MG/5ML SYRP 1 tsp by mouth q pm, if needed for cough PROMETHAZINE-CODEINE 6.25-10 MG/5ML SYRP 429114 PROMETHAZINE-CODEINE Inactive FLONASE 50 MCG/ACT SUSP 1 spray each nostril q hs FLONASE 50 MCG/ACT SUSP 5056337 FLUTICASONE PROPIONATE Inactive AZITHROMYCIN 250 MG TABS 2 po qd x 1 day, then 1 po qd x 4 days AZITHROMYCIN 250 MG TABS 8548087 AZITHROMYCIN Inactive TERBINAFINE HCL 250 MG TABS 1 qDay for rash TERBINAFINE HCL 250 MG TABS 526366 TERBINAFINE HCL Inactive PREDNISONE 20 MG TAB take 3 tabs daily for 3 days, 2 tabs daily for 3 days, 1 tab daily for 3 days, 1/2 tab daily for 3 days PREDNISONE 20 MG TAB 407158 PREDNISONE Inactive AZITHROMYCIN 250 MG TABS 2 po qd x 1 day, then 1 po qd x 4 days AZITHROMYCIN 250 MG TABS 1247146 AZITHROMYCIN Inactive PREDNISONE 20 MG TAB 2 tabs daily for 3 days, 1 tab daily for 3 days, 1/2 tab daily for 2 days PREDNISONE 20 MG TAB 090808 PREDNISONE Inactive Vital Signs Date Name Value [...] Measured Encounters Code Encounter Date Provider Facility CPT-73380 Level 3 Est. Patient 15:12:30 CDT Carter Grant MD [facility] CPT-67095 Level 3 Est. Patient 10:56:20 CDT Norman Mota APRN [facility] CPT-88434 Level 3 Est. Patient 12:32:48 CDT Hang Farias MD [facility] CPT-07227 Level 3 Est. Patient 10:29:19 CDT Elder Dominguez MD [facility] CPT-30072 Level 3 Est. Patient 17:22:49 MANAGER ERP Hang Farias MD [facility] CPT-14453 Level 3 Est. Patient 17:13:20 MANAGER ERP Abelardo Butler DO [facility] Procedures Code Procedure Name Date Entry Date Standard Description CPT-45556 Sternum 2V - XRAY USE ONLY 10:41:33 CDT CPT-48961 [place] only w graphic rec 11:10:43 CDT CPT-49133 Audiometry - Co Only 11:10:43 CDT CPT-39661 Spec Collection and Handling Fee 11:10:43 CDT
--- OUTSIDE RECORDS SUMMARY | 2017-08-24 06:14 | XMS REPORT | Clinical Summary ---
Author Author Admin, [facility] Organization [employer] Address Unknown Phone Unavailable Allergies, Adverse Reactions, [...] every 12 hours for 10 days AMOXICILLIN 85363533213 Active Carter Grant MD Active PREDNISONE 20 MG TABS Take 2 daily for 5 days and then 1 daily for 5 days PREDNISONE 69113870099 Active Carter Grant MD Active FLONASE 50 MCG/ACT SUSP 1 spray each nostril q hs FLUTICASONE PROPIONATE No Longer Active Carter Grant MD Active PROMETHAZINE-CODEINE 6.25-10 MG/5ML SYRP 1 tsp by mouth q pm, if needed for cough PROMETHAZINE-CODEINE 57938290934 No Longer Active Carter Grant MD Active PREDNISONE 20 MG TAB 2 tabs daily for 3 days, 1 tab daily for 3 days, 1/2 tab daily for 2 days PREDNISONE 03057653775 No Longer Active Jillina Svetlana DEJESUSN Active AZITHROMYCIN 250 MG TABS 2 po qd x 1 day, then 1 po qd x 4 days AZITHROMYCIN 88676016820 No Longer Active Jillina Frazell PINKED EDGE SEWING MACHINE OPERATOR Active VENTOLIN HFA 108 (90 BASE) MCG/ACT AERS 1-2 puffs every 4 hours if needed for cough/congestion ALBUTEROL SULFATE 99797971082 Active Jillina Frazell PINKED EDGE SEWING MACHINE OPERATOR Active OXYCODONE HCL 5 MG ORAL TABS 1 tablet every 4-6 hours p.r.n. pain sparingly OXYCODONE HCL 21871698795 No Longer Active Jillina Frazell PINKED EDGE SEWING MACHINE OPERATOR Active MELOXICAM 15 MG TABS 1 po q day for pain with food MELOXICAM 21161895708 No Longer Active Jillina Frazell PINKED EDGE SEWING MACHINE OPERATOR Active METHOCARBAMOL 750 MG TABS 1 po q8hr PRN Muscle Spasm METHOCARBAMOL 03010208064 No Longer Active Hang Farias MD Active ZOFRAN 4 MG TABS 1 po q6hr PRN Nausea ONDANSETRON HCL 64783675095 No Longer Active Hang Farias MD Active CHERATUSSIN AC 100-10 MG/5ML SYRP 1 tsp by mouth every 4 hours as needed for cough GUAIFENESIN-CODEINE 82080972255 No Longer Active Elder Dominguez MD Active PREDNISONE 20 MG TAB take 3 tabs daily for 3 days, 2 tabs daily for 3 days, 1 tab daily for 3 days, 1/2 tab daily for 3 days PREDNISONE 71223398043 No Longer Active Hang Farias MD Active TERBINAFINE HCL 250 MG TABS 1 qDay for rash TERBINAFINE HCL 81768660088 No Longer Active Hang Farias MD Active ALBUTEROL SULFATE 0.083 % NEBU SOLN one vial per nebulizer every 4-6 hours as needed ALBUTEROL SULFATE 44828561268 No Longer Active Hang Farias MD Active PREDNISONE 20 MG TAB 2 tabs today, then 1 tab by mouth days 2-5 PREDNISONE 04611290187 No Longer Active Hang Farias MD Active AZITHROMYCIN 250 MG TABS 2 po qd x 1 day, then 1 po qd x 4 days AZITHROMYCIN 09313743797 No Longer Active Abelardo Butler DO Active PREDNISONE 20 MG TAB 2 tabs today, then 1 tab by mouth days 2-5 PREDNISONE 20 MG TAB 535353 PREDNISONE Inactive ALBUTEROL SULFATE 0.083 % NEBU SOLN one vial per nebulizer every 4-6 hours as needed ALBUTEROL SULFATE 0.083 % NEBU SOLN 076835 ALBUTEROL SULFATE Inactive CHERATUSSIN AC 100-10 MG/5ML SYRP 1 tsp by mouth every 4 hours as needed for cough CHERATUSSIN AC 100-10 MG/5ML SYRP 668842 GUAIFENESIN-CODEINE Inactive ZOFRAN 4 MG TABS 1 po q6hr PRN Nausea ZOFRAN 4 MG TABS 501360 ONDANSETRON HCL Inactive METHOCARBAMOL 750 MG TABS 1 po q8hr PRN Muscle Spasm METHOCARBAMOL 750 MG TABS 242434 METHOCARBAMOL Inactive MELOXICAM 15 MG TABS 1 po q day for pain with food MELOXICAM 15 MG TABS 384834 MELOXICAM Inactive OXYCODONE HCL 5 MG ORAL TABS 1 tablet every 4-6 hours p.r.n. pain sparingly OXYCODONE HCL 5 MG ORAL TABS 6019819 OXYCODONE HCL Inactive PROMETHAZINE-CODEINE 6.25-10 MG/5ML SYRP 1 tsp by mouth q pm, if needed for cough PROMETHAZINE-CODEINE 6.25-10 MG/5ML SYRP 160524 PROMETHAZINE-CODEINE Inactive FLONASE 50 MCG/ACT SUSP 1 spray each nostril q hs FLONASE 50 MCG/ACT SUSP 2638999 FLUTICASONE PROPIONATE Inactive AZITHROMYCIN 250 MG TABS 2 po qd x 1 day, then 1 po qd x 4 days AZITHROMYCIN 250 MG TABS 3902892 AZITHROMYCIN Inactive TERBINAFINE HCL 250 MG TABS 1 qDay for rash TERBINAFINE HCL 250 MG TABS 368724 TERBINAFINE HCL Inactive PREDNISONE 20 MG TAB take 3 tabs daily for 3 days, 2 tabs daily for 3 days, 1 tab daily for 3 days, 1/2 tab daily for 3 days PREDNISONE 20 MG TAB 245174 PREDNISONE Inactive AZITHROMYCIN 250 MG TABS 2 po qd x 1 day, then 1 po qd x 4 days AZITHROMYCIN 250 MG TABS 2548715 AZITHROMYCIN Inactive PREDNISONE 20 MG TAB 2 tabs daily for 3 days, 1 tab daily for 3 days, 1/2 tab daily for 2 days PREDNISONE 20 MG TAB 637667 PREDNISONE Inactive Vital Signs Date Name Value [...] Measured Encounters Code Encounter Date Provider Facility CPT-94918 Level 3 Est. Patient 15:12:30 CDT Carter Grant MD [facility] CPT-78593 Level 3 Est. Patient 10:56:20 CDT Norman Mota APRN [facility] CPT-20416 Level 3 Est. Patient 12:32:48 CDT Hang Farias MD [facility] CPT-40488 Level 3 Est. Patient 10:29:19 CDT Elder Dominguez MD [facility] CPT-53813 Level 3 Est. Patient 17:22:49 ENHANCED ENVIRONMENTAL OPERATOR Hang Farias MD [facility] CPT-54047 Level 3 Est. Patient 17:13:20 ENHANCED ENVIRONMENTAL OPERATOR Abelardo Butler DO [facility] Procedures Code Procedure Name Date Entry Date Standard Description CPT-07679 Sternum 2V - XRAY USE ONLY 10:41:33 CDT CPT-15835 [place] only w graphic rec 11:10:43 CDT CPT-75128 Audiometry - [place] Only 11:10:43 CDT CPT-07245 Spec Collection and Handling Fee 11:10:43 CDT
--- OUTSIDE RECORDS SUMMARY | 2017-08-24 06:14 | XMS REPORT | Clinical Summary ---
Author Author Admin, [facility] Organization [place] Address Unknown Phone Unavailable Allergies, Adverse Reactions, [...] q pm, if needed for cough PROMETHAZINE-CODEINE 85042999393 Active Shadyllina Svetlana DEJESUSN Active PREDNISONE 20 MG TAB 2 tabs daily for 3 days, 1 tab daily for 3 days, 1/2 tab daily for 2 days PREDNISONE 25005592658 No Longer Active Jillina Mansoorl BROADCAST MAINTENANCE TECHNICIAN Active AZITHROMYCIN 250 MG TABS 2 po qd x 1 day, then 1 po qd x 4 days AZITHROMYCIN 89893816775 No Longer Active Jillina Framerlinl BROADCAST MAINTENANCE TECHNICIAN Active VENTOLIN HFA 108 (90 BASE) MCG/ACT AERS 1-2 puffs every 4 hours if needed for cough/congestion ALBUTEROL SULFATE 72523197860 Active Shadyllina Mansoorl BROADCAST MAINTENANCE TECHNICIAN Active OXYCODONE HCL 5 MG ORAL TABS 1 tablet every 4-6 hours p.r.n. pain sparingly OXYCODONE HCL 09945521011 No Longer Active Shadyllina Mansoorl BROADCAST MAINTENANCE TECHNICIAN Active MELOXICAM 15 MG TABS 1 po q day for pain with food MELOXICAM 68074493026 No Longer Active Shadyllina Svetlana DEJESUSN Active METHOCARBAMOL 750 MG TABS 1 po q8hr PRN Muscle Spasm METHOCARBAMOL 99208377836 No Longer Active Hang Farias MD Active ZOFRAN 4 MG TABS 1 po q6hr PRN Nausea ONDANSETRON HCL 32796879980 No Longer Active Hang Farias MD Active FLONASE 50 MCG/ACT SUSP 1 spray each nostril q hs FLUTICASONE PROPIONATE Active Elder Dominguez MD Active CHERATUSSIN AC 100-10 MG/5ML SYRP 1 tsp by mouth every 4 hours as needed for cough GUAIFENESIN-CODEINE 78499728036 No Longer Active Elder Dominguez MD Active PREDNISONE 20 MG TAB take 3 tabs daily for 3 days, 2 tabs daily for 3 days, 1 tab daily for 3 days, 1/2 tab daily for 3 days PREDNISONE 38259304613 No Longer Active Hang Farias MD Active TERBINAFINE HCL 250 MG TABS 1 qDay for rash TERBINAFINE HCL 24643691709 No Longer Active Hang Farias MD Active ALBUTEROL SULFATE 0.083 % NEBU SOLN one vial per nebulizer every 4-6 hours as needed ALBUTEROL SULFATE 54997901402 No Longer Active Hang Farias MD Active PREDNISONE 20 MG TAB 2 tabs today, then 1 tab by mouth days 2-5 PREDNISONE 04887570295 No Longer Active Hang Farias MD Active AZITHROMYCIN 250 MG TABS 2 po qd x 1 day, then 1 po qd x 4 days AZITHROMYCIN 86494700988 No Longer Active Abelardo Butler DO Active PREDNISONE 20 MG TAB 2 tabs today, then 1 tab by mouth days 2-5 PREDNISONE 20 MG TAB 108899 PREDNISONE Inactive ALBUTEROL SULFATE 0.083 % NEBU SOLN one vial per nebulizer every 4-6 hours as needed ALBUTEROL SULFATE 0.083 % NEBU SOLN 201701 ALBUTEROL SULFATE Inactive CHERATUSSIN AC 100-10 MG/5ML SYRP 1 tsp by mouth every 4 hours as needed for cough CHERATUSSIN AC 100-10 MG/5ML SYRP 785407 GUAIFENESIN-CODEINE Inactive ZOFRAN 4 MG TABS 1 po q6hr PRN Nausea ZOFRAN 4 MG TABS 955153 ONDANSETRON HCL Inactive METHOCARBAMOL 750 MG TABS 1 po q8hr PRN Muscle Spasm METHOCARBAMOL 750 MG TABS 389992 METHOCARBAMOL Inactive MELOXICAM 15 MG TABS 1 po q day for pain with food MELOXICAM 15 MG TABS 245012 MELOXICAM Inactive OXYCODONE HCL 5 MG ORAL TABS 1 tablet every 4-6 hours p.r.n. pain sparingly OXYCODONE HCL 5 MG ORAL TABS 3698451 OXYCODONE HCL Inactive AZITHROMYCIN 250 MG TABS 2 po qd x 1 day, then 1 po qd x 4 days AZITHROMYCIN 250 MG TABS 5950641 AZITHROMYCIN Inactive TERBINAFINE HCL 250 MG TABS 1 qDay for rash TERBINAFINE HCL 250 MG TABS 250346 TERBINAFINE HCL Inactive PREDNISONE 20 MG TAB take 3 tabs daily for 3 days, 2 tabs daily for 3 days, 1 tab daily for 3 days, 1/2 tab daily for 3 days PREDNISONE 20 MG TAB 892217 PREDNISONE Inactive AZITHROMYCIN 250 MG TABS 2 po qd x 1 day, then 1 po qd x 4 days AZITHROMYCIN 250 MG TABS 1237881 AZITHROMYCIN Inactive PREDNISONE 20 MG TAB 2 tabs daily for 3 days, 1 tab daily for 3 days, 1/2 tab daily for 2 days PREDNISONE 20 MG TAB 479829 PREDNISONE Inactive Vital Signs Date Name Value [...] Measured Encounters Code Encounter Date Provider Facility CPT-93392 Level 3 Est. Patient 10:56:20 CDT Norman Mota APRN [facility] CPT-66067 Level 3 Est. Patient 12:32:48 CDT Hang Farias MD [facility] CPT-75882 Level 3 Est. Patient 10:29:19 CDT Elder Dominguez MD [facility] CPT-76085 Level 3 Est. 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
--- OUTSIDE RECORDS SUMMARY | 2017-08-24 06:15 | XMS REPORT | Continuity of Care Document ---
Author Author [facility] Organization [facility] Address Unknown Phone Unavailable Allergies Active Description Code Type Severity Reaction Onset Reported/Identified Relationship to Patient Clinical Status Yes No known allergies Drug N/A N/A Medications Problems Procedures Results Encounters ACCT No. Visit Date/Time Discharge Status Pt. Type Provider Facility Loc./Unit Complaint [id number] 07/13/2017 13:00:17 2016 23:59:59 DIS Outpatient CHERI HALEY [facility] LADONNA Todd on physical exam, Chronic Sinusitusis, follow up from tx medication [id number] 07/13/2017 12:55:01 ACT Unknown
--- OUTSIDE RECORDS SUMMARY | 2017-08-24 06:15 | XMS REPORT | Clinical Summary ---
Author Author Admin, KELSEY Organization [facility] Address Unknown Phone Unavailable Allergies, Adverse Reactions, Alerts Allergy Name Reaction Description Start Date Severity Status Provider No Known Allergies Carlene Herman MA Conditions or Problems Problem Name Problem Code Onset Date Status Entry Date Provider Comment Standard Description Annotate HEALTH EXAMINATION OF DEFINED SUBPOPULATION V70.5 Active Amanda Yates Health examination of defined subpopulations HEALTH SCREENING V70.0 Active Sloan LOPEZ Routine general medical examination at a health care facility Bronchitis, acute with mild bronchospasm 466.0 Active Abelardo Butler DO Acute bronchitis Medication List Medication Instructions Start Date Stop Date Generic Name NDC Status Provider Patient Instruction PREDNISONE 20 MG TAB 2 tabs today, then 1 tab by mouth days 2-5 PREDNISONE 99383984505 Active Abelardo Butler DO Active AZITHROMYCIN 250 MG TABS 2 po qd x 1 day, then 1 po qd x 4 days AZITHROMYCIN 17028375060 No Longer Active Abelardo Butler DO Active ALBUTEROL SULFATE 0.083 % NEBU SOLN one vial per nebulizer every 4-6 hours as needed ALBUTEROL SULFATE 37364984549 Active Abelardo Butler DO Active AZITHROMYCIN 250 MG TABS 2 po qd x 1 day, then 1 po qd x 4 days AZITHROMYCIN 250 MG TABS 5509061 AZITHROMYCIN Inactive Vital Signs Date Name Value Unit Range Description blood pressure, diastolic - 8462-4 73 mm[Hg] BP rivas blood pressure, systolic - 8480-6 145 mm[Hg] BP sys pulse rate E&M - 8867-4 75 /min Heart rate temperature E&M 97.8 [degF] Body temperature weight E&M - 3141-9 156.5 [lb_av] Weight Measured Encounters Code Encounter Date Provider Facility CPT-61068 Level 3 Est. Patient 17:13:20 MANAGEMENT ADVISOR Abelardo Butler DO [facility] Procedures Code Procedure Name Date Entry Date Standard Description CPT-97702 Geraldo only w graphic rec 11:10:43 CDT CPT-40854 Audiometry - Co Only 11:10:43 CDT CPT-81242 Spec Collection and Handling Fee 11:10:43 CDT
--- OUTSIDE RECORDS SUMMARY | 2017-08-24 06:15 | XMS REPORT | Clinical Summary ---
Author Author Admin, KELSEY Organization [facility] Address Unknown Phone Unavailable Allergies, [...] 1 tab by mouth days 2-5 PREDNISONE 69705159616 Active Abelardo Butler DO Active AZITHROMYCIN 250 MG TABS 2 po qd x 1 day, then 1 po qd x 4 days AZITHROMYCIN 24839203659 No Longer Active Abelardo Butler DO Active ALBUTEROL SULFATE 0.083 % NEBU SOLN one vial per nebulizer every 4-6 hours as needed ALBUTEROL SULFATE 56039325527 Active Abelardo Butler DO Active AZITHROMYCIN 250 MG TABS 2 po qd x 1 day, then 1 po qd x 4 days AZITHROMYCIN 250 MG TABS 2192197 AZITHROMYCIN Inactive Vital Signs Date Name Value Unit Range Description blood pressure, diastolic - 8462-4 73 mm[Hg] BP rivas blood pressure, systolic - 8480-6 145 mm[Hg] BP sys pulse rate E&M - 8867-4 75 /min Heart rate temperature E&M 97.8 [degF] Body temperature weight E&M - 3141-9 156.5 [lb_av] Weight Measured Encounters Code Encounter Date Provider Facility CPT-13494 Level 3 Est. 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
[2017-08-24 06:30] VITALS: BP 130/84
[2017-08-24] MEDS ORDERED: HYDROCORTISONE 100 MG/2 ML (Solu-CORTEF) VIAL IV ONE (06:30)
[2017-08-24] MEDS ORDERED: CATHETER FLUSH 10 ML SYR IV PRN (06:30)
[2017-08-24] MEDS ORDERED: AMPICILLIN/SULBACTAM 1.5 GM/NS 50 ML IVPB IV ONE ×2 (06:30)
[2017-08-24] MEDS ORDERED: ONDANSETRON 4 MG/2 ML (SDV) Z0FRAN ONE (06:41)
[2017-08-24] MEDS ORDERED: MIDAZOLAM 2 MG/2 ML (VERSED) VIAL ONE (06:41)
[2017-08-24] MEDS ORDERED: SEVOFLURANE (ULTANE) 15 ML INHAL SOLN ONE ×7 (06:41→09:01)
[2017-08-24] MEDS ORDERED: LACTATED RINGERS 1,000 ML IV ONE ×2 (06:41→09:01)
[2017-08-24] MEDS ORDERED: DEXAMETHASONE 10 MG/ML (DECADRON) 1 ML VIAL ONE (06:41)
[2017-08-24] MEDS ORDERED: proPOfol 200 MG/20 ML (DIPRIVAN) VIAL IV ONE (06:41)
[2017-08-24] MEDS ORDERED: ROCURONIUM 50 MG/5 ML (ZEMURON) VIAL IV ONE (06:41)
[2017-08-24] MEDS ORDERED: fentaNYL INJECTION 100 MCG/2 ML AMP ONE ×2 (06:41→09:17)
[2017-08-24] MEDS ORDERED: LIDOCAINE PF 2% 5 ML (XYLOCAINE) VIAL ONE (06:41)
[2017-08-24] MEDS: LACTATED RINGERS 1,000 ML IV PRN ×2 (06:59→08:58)
[2017-08-24] MEDS ORDERED: LACTATED RINGERS 1,000 ML IV SCH (07:00)
[2017-08-24 07:06] LABS: MEAN PLATELET VOLUME 9.5 FL (7.4-10.4); RED BLOOD COUNT 4.86 10^6/uL (4.35-5.85); RED CELL DISTRIBUTION WIDTH 11.8 % (10.0-14.5); WHITE BLOOD COUNT 6.6 10^3/uL (4.3-11.0)
--- NOTE | 2017-08-24 07:07 | Progress Note-Pre Operative ---
Pre-Operative Progress Note H&P Reviewed The H&P was reviewed, patient examined and no changes noted. Date Seen by Provider: Aug 24, 2017 Time Seen by Provider: 06:45 Date H&P Reviewed: Aug 24, 2017 Time H&P Reviewed: 06:45 Pre-Operative Diagnosis: Bilat Chronic Sinusitis, Bilat Hyepr of INf Turbs, Deviated Septum CHERI HALEY MD Aug 24, 2017 7:07 am
[2017-08-24] MEDS ORDERED: BSS 15 ML ONE (07:14)
[2017-08-24] MEDS ORDERED: COCAINE HCL 4% 2 ML SYR ONE (07:15)
[2017-08-24] MEDS ORDERED: PHENYLEPHRINE 0.5% NASAL SPR (NEO-SYNEPHRINE) REG ONE (07:15)
[2017-08-24 07:27] LABS: ANION GAP 14 MMOL/L (5-14); BLOOD UREA NITROGEN 7 MG/DL (7-18); BUN/CREATININE RATIO 9; CALCIUM 9.2 MG/DL (8.5-10.1); CARBON DIOXIDE 22 MMOL/L (21-32); CHLORIDE 106 MMOL/L (98-107); CREATININE SERUM 0.81 MG/DL (0.60-1.30); GFR ESTIMATED > 60; GLUCOSE 87 MG/DL (70-105); POTASSIUM 3.5 MMOL/L (3.6-5.0); SODIUM 142 MMOL/L (135-145)
[2017-08-24] MEDS: LIDOCAINE/EPI 1%-1:200,000 (XYLOCAINE) 10 ML VIAL ONE (08:11)
[2017-08-24] MEDS ORDERED: NEOSTIGMINE (BLOXIVERZ ) 1 MG/1ML 10 ML VIAL ONE (09:02)
[2017-08-24] MEDS ORDERED: GLYCOPYRROLATE 0.2 MG/ML (ROBINUL) 2 ML VIAL ONE (09:02)
[2017-08-24] MEDS ORDERED: D5 1/2 NS W/KCL 20 MEQ/L 1,000 ML IV SCH (09:10)
--- NOTE | 2017-08-24 09:10 | Progress Note-Post Operative ---
Post-Operative Progess Note Surgeon (s)/Silver Recovery Operator (s) Surgeon CHERI HALEY MD Silver Recovery Operator n/a Pre-Operative Diagnosis Bilat Chronic Sinusitis, Bilat Hyepr of INf Turbs, Deviated Septum Post-Operative Diagnosis same Post-Op Procedure Note Date of Procedure: Aug 24, 2017 Name of Procedure Performed: Bilat ESs, Bilat REd of Inf Turbs Description & Findings Description and Findings: n/a Anesthesia Type get Estimated Blood Loss minimal Packing none. Specimen(s) collected/removed bilat chronic Sinusitis, nasal polyps CHERI HALEY MD Aug 24, 2017 9:09 am
[2017-08-24] MEDS ORDERED: HYDROcodone/APAP 5 MG/325 MG (LORTAB) TAB PO PRN (09:15)
[2017-08-24] MEDS ORDERED: ACETAMINOPHEN 325 MG TABLET/CAPLET (TYLENOL) PO PRN (09:15)
[2017-08-24] MEDS ORDERED: PROMETHAZINE INJ 25 MG/ML (PHENERGAN) AMP IVP PRN (09:15)
[2017-08-24] MEDS ORDERED: predniSONE 20 MG TAB PO NR (09:15)
[2017-08-24] MEDS: fentaNYL INJECTION 100 MCG/2 ML AMP IVP PRN ×2 (09:27→09:43)
[2017-08-24] MEDS ORDERED: ONDANSETRON 4 MG/2 ML (SDV) Z0FRAN IVP PRN (09:30)
[2017-08-24] MEDS ORDERED: HYDROmorphone (DILAUDID) 2 MG/ML VIAL IVP PRN (09:30)
[2017-08-24 10:15] VITALS: BP 125/76
[2017-08-24 10:45] VITALS: BP 124/79
[2017-08-24 11:15] VITALS: BP 113/62
[2017-08-24] MEDS ORDERED: AMOX-355 PO (11:22)
[2017-08-24] MEDS ORDERED: HYDR-3812 PO (11:22)
[2017-08-24] MEDS ORDERED: PRD20T PO (11:22)
== END 2017-08-24 11:45 | disposition home or self-care (01) ==
LOC: SDC 06:05
PROVIDERS: ATTEND Otolaryngology Otolaryngology/Facial Plastic Surgery
DX: J32.0 Chronic maxillary sinusitis (principal); J32.2 Chronic ethmoidal sinusitis; J32.1 Chronic frontal sinusitis; J33.0 Polyp of nasal cavity; J34.3 Hypertrophy of nasal turbinates
CPT/HCPCS: 36415; 80048; 85027; 87081

== ENCOUNTER → 2022-08-05 | Outpatient (CLI) | payer SELFPAY ==
[~2022-08-05] MED LIST changes: +ACHD5005 PO; +AMOX-355 PO; +PRD20T PO
== END ==
LOC: LAB 15:08
PROVIDERS: ATTEND Nurse Practitioner Primary Care
DX: Z31.441 Encounter for testing of male partner of patient with recurrent pregnancy loss (principal)
CPT/HCPCS: 89320